=== PATIENT | female | born 1955 | race Caucasian/White ===

== ENCOUNTER → 2019-01-03 | Emergency (ER) | payer MEDICAID | LOC: ER 18:40 | DX: R73.9 Hyperglycemia, unspecified (principal); Z53.21 Procedure and treatment not carried out due to patient leaving prior to being seen by health care provider | CPT/HCPCS: 82962 ==

== ENCOUNTER 2022-08-15 22:52 | Emergency (ER) | payer OTHER, MEDICAID ==
[~2022-08-15] VITALS: Ht 162.6 cm; Wt 97.8 kg
[2022-08-16 00:05] LABS: Basophils # (auto) 0.1 10 ^3/uL (0-0.2); Basophils % (auto) 1.2 % (0.0-2.0); Eosinophils # (auto) 0.2 10 ^3/uL (0-0.8); Eosinophils % (auto) 2.2 % (0.0-7.0); Hematocrit 29.6 % (36.0-46.0); Hemoglobin 9.9 g/dL (12.2-16.2); Lymphocytes # (auto) 3.1 10 ^3/uL (0.4-5.4); Lymphocytes % (auto) 43.3 % (10.0-50.0); Mean Corpuscular Hemoglobin 31.4 pg (28.0-32.0); Mean Corpuscular Hgb Conc. 33.4 g/dL (32.0-36.0); Monocytes # (auto) 0.5 10 ^3/uL (0-1.3); Monocytes % (auto) 7.1 % (0.0-12.0); Neutrophils # (auto) 3.3 10 ^3/uL (1.6-8.6); Neutrophils % (auto) 46.2 % (37.0-80.0); Red Blood Cells 3.15 10^6/uL (4.0-5.20); Red Cell Distribution Width 14.8 % (11.8-14.3); White Blood Cell 7.1 10^3/uL (4.4-10.8)
[2022-08-16 00:18] LABS: Albumin 3.3 g/dL (3.4-5.0); Calcium 8.8 mg/dL (8.5-10.1); Magnesium 2.3 mg/dL (1.6-2.6); Potassium 3.1 mmol/L (3.5-5.1)
[2022-08-16 00:20] LABS: Urine Bacteria FEW /hpf (None Seen); Urine Blood Negative /uL (Negative); Urine Specific Gravity 1.017 (1.001-1.035); Urine WBC 152 /hpf (0 - 5); Urine WBC Clumps PRESENT /hpf (None Seen)
[2022-08-16 00:21] LABS: BUN/Creatinine Ratio 13.8 (10.0-20.0); Bilirubin, Total 0.4 mg/dL (0.2-1.0); Total Protein 6.8 g/dL (6.4-8.2)
[2022-08-16] MEDS ORDERED: POTASSIUM CHL 20 Meq TABLET PO ONE (02:45)
[2022-08-16 03:11] LABS: Alcohol, Urine < 3.0 mg/dL (0-10); Amphetamine Screen, Urine NEGATIVE (NEGATIVE); Barbiturate Scree,Urine NEGATIVE (NEGATIVE); Benzodiazephine Screen, Urine NEGATIVE (NEGATIVE); Cannabinoid Screen, Urine NEGATIVE (NEGATIVE); Cocaine Screen, Urine NEGATIVE (NEGATIVE); Opiate Scree,Urine NEGATIVE (NEGATIVE); Phencyclidine Screen, Urine NEGATIVE (NEGATIVE)
[2022-08-16] MEDS ORDERED: FUROSEMIDE 40 MG/4 ML VIAL IV ONE (03:15)
[2022-08-16] MEDS ORDERED: IOHEXOL 350 MG/ML 100ML IJ ONE (03:33)
[2022-08-16] MEDS ORDERED: PIPERACILLIN-TAZOB 3.375GM 100 ML IV ONE (04:15)
[2022-08-16] MEDS ORDERED: POTA-180 PO (05:00)
[2022-08-16] MEDS ORDERED: NITR-87 PO (10:43)
[2022-08-16 11:28] VITALS: BP 153/64
== END 2022-08-16 11:35 | disposition home or self-care (01) ==
LOC: ER 22:52
DX: I11.0 Hypertensive heart disease with heart failure (principal); I50.9 Heart failure, unspecified; R60.0 Localized edema; E11.9 Type 2 diabetes mellitus without complications; Z88.2 Allergy status to sulfonamides; Z79.899 Other long term (current) drug therapy
CPT/HCPCS: 36415; 71046; 71275; 80053; 80307; 81001; 82962; 83735; 83880; 84484; 85025; 85379; 93005; 93970; 96365; 96366; 96375; 99285; J1940; J2543; Q9967

== ENCOUNTER 2024-07-28 14:34 | Inpatient (IN) | payer MEDICARE, MEDICAID ==
[2024-07-28] VITALS (18 sets, daily range): BP systolic 124–160; BP diastolic 51–94; PULSE 57–71; RESP 11–25; O2SAT 90–96
[~2024-07-28] VITALS: Ht 165.1 cm; Wt 87.5 kg
[~2024-07-28 14:34] MED LIST: NITR-87 PO; POTA-180 PO
--- NOTE | 2024-07-28 14:39 | ED.PDOC ---
History of Present Illness HPI Comments 69-year-old female brought by paramedics from home because of burning on urination generalized weakness. She recently had urinary tract infection for which she was treated with Cipro for a week. When paramedics arrived her heart rate was in the 30s to 40s for which she was given atropine and push dose of ep i. Her blood pressure on arrival in the ER was systolic 68. Patient continues to have generalized weakness. History of coronary artery disease with stent placement many years ago along with hypertension diabetes. Denies any other symptoms. Time Seen by MD: 14:35 Reviewed Notes: Nurses Notes, Medications, Allergies Allergies: Coded Allergies: Sulfamethoxazole w/Trimethoprim (Verified Allergy, Unknown, 08/15/22) Home Meds Active Scripts Nitrofurantoin Monohydrate Mac (Macrobid) 100 Mg Cap, 100 MG PO BID for 5 Days, #10 CAP Prov:JOEL LEONARDO MD 08/16/22 Potassium Chloride (Potassium Chloride ER) 20 Meq Tab, 20 MEQ PO DAILY for 30 Days, #30 TAB Prov:YUMIKO THAKKAR DO 08/16/22 Information Source: Patient, Emergency Med Personnel Mode of Arrival: EMS Severity: Moderate Timing: Days Duration: Since onset Past Medical History PAST MEDICAL HISTORY: CHF, DM, HTN, IA Surgical History: Denies all surgeries PRODUCT EXAMINER History: Denies all PRODUCT EXAMINER Hx Family History Family History: Reviewed,noncontributory to illness Social History Smoker: Non-Smoker Alcohol: Denies ETOH Use Drugs: Denies Drug Use Lives In: Home Constitutional: reports: weakness; denies: chills, diaphoresis, fatigue, fever, malaise, sweats, others EENTM: denies: blurred vision, double vision, ear bleeding, ear discharge, ear drainage, ear pain, ear ringing, eye pain, eye redness, hearing loss, mouth pain, mouth swelling, nasal discharge, nose bleeding, nose congestion, nose pain, photophobia, tearing, throat pain, throat swelling, voice changes, others Respiratory: denies: cough, hemoptysis, orthopnea, SOB at rest, shortness of breath, SOB with excertion, stridor, wheezing, others Cardiovascular: denies: chest pain, dizzy spells, diaphoresis, Dyspnea on exertion, edema, irregular heart beat, left arm pain, lightheadedness, palpitations, PND, syncope, others Gastrointestinal: denies: abdomen distended, abdominal pain, blood streaked bowels, constipated, diarrhea, dysphagia, difficulty swallowing, hematemesis, melena, nausea, poor appetite, poor fluid intake, rectal bleeding, rectal pain, vomiting, others Genitourinary: reports: dysuria; denies: abnormal vagina bleeding, burning, dyspareunia, flank pain, frequency, hematuria, incontinence, pain, , vagina discharge, urgency, others Neurological: denies: dizziness, fainting, headache, left sided numbness, left sided weakness, numbness, paresthesia, pre-existing deficit, right sided nu mbness, right sided weakness, seizure, speech problems, tingling, tremors, weakness, others Musculoskeletal: denies: back pain, gout, joint pain, joint swelling, muscle pain, muscle stiffness, neck pain, others Integumetry: denies: bruises, change in color, change in hair/nails, dryness, laceration, lesions, lumps, rash, wounds, others Allergic/Immunocompromised: denies: Difficulty Healing, Frequent Infections, Hives, Itching, others Hematologic/Lymphatic: denies: anemia, blood clots, easy bleeding, easy bruising, swollen glands, others Endocrine: denies: excessive hunger, excessive sweating, excessive thirst, excessive urination, flushing, intolerance to cold, intolerance to heat, unexplained weight gain, unexplained weight loss, others Psychiatric: denies: anxiety, bipolar disorder, depression, hopeless, panic disorder, schizophrenia, sleepless, suicidal, others Physical Exam General Appearance: Moderate Distress HEENT: Normal ENT Inspection, Pharynx Normal, TMs Normal Neck: Full Range of Motion, Non-Tender, Normal, Normal Inspection Respiratory: Chest Non-Tender, Lungs Clear, No Accessory Muscle Use, No Respiratory Distress, Normal Breath Sounds Cardiovascular: No Edema, No JVD, No Murmur, No Gallop, Normal Peripheral Pulses, Regular Rate/Rhythm Breast Exam: Deferred Gastrointestinal: No Organomegaly, Non Tender, No Pulsatile Mass, Normal Bowel Sounds, Soft Genitalia: Deferred Pelvic: Deferred Rectal: Deferred Extremities: No calf tenderness, Normal capillary refill, Normal inspection, Normal range of motion, Non-tender, No pedal edema Musculoskeletal : Apperance: Normal Neurologic: Alert, bricklayer sewer II-XII nml as Tested, No Motor Deficits, Normal Affect, Normal Mood, No Sensory Deficits Cerebellar Function: NOT DONE Reflexes: NOT DONE Skin: Dry, Normal Color, Warm Peripheral Pulses: 3+ Radial (R), 3+ Radial (L) Lymphatic: No Adenopathy Was a procedure done? Was a procedure done?: Yes Sedation Sedation?: No Central Line Recorder of insertion practice: Package Collector Occupation of utility repairer: Attending Physician Indication: Hypotension, CVP monitoring Room prepared for procedure: Yes Package Collector performed hand hygien: Yes Maximal sterile barrier precau: Mask/Eye shield, Sterile gown Skin Preparation: Chlorhexidine gluconate Skin preparation completely dr: Yes Insertion site: Right, Internal jugular Central line catheter type: Dnt-[id number]-scb dialysis Number of lumens: 3 Antiseptic ointment applied to: Yes Post Assessment: Chest X-Ray Differential Dx Considerations may include: Anemia Electrolyte imbalance X-Ray, Labs, Meds, VS Vital Signs Date Time Temp Pulse Resp B/P (MAP) Pulse Ox O2 Delivery O2 Flow Rate FiO2 07/28/24 16:59 79/33 07/28/24 16:45 81 15 99/45 (63) 99 07/28/24 16:30 86 15 79/33 (48) 99 07/28/24 16:15 86 15 87/35 (52) 99 07/28/24 16:00 86 15 101/33 (55) 99 07/28/24 16:00 101/33 07/28/24 15:50 82/41 07/28/24 15:45 83 15 82/41 (55) 99 07/28/24 15:40 80/49 07/28/24 15:30 74 15 80/49 (59) 99 07/28/24 15:30 71/36 07/28/24 15:15 71 15 71/36 (48) 99 07/28/24 15:00 97.5 71 15 90/42 (58) 99 97.5 07/28/24 14:43 72 07/28/24 14:41 74 24 68/52 (57) 99 07/28/24 14:41 74 24 68/52 (57) 99 Lab Test 07/28/24 15:57 07/28/24 14:48 Range/Units Troponin I High Sensitivity < 3 L < 3 L </=34 ng/L White Blood Count 8.6 4.4-10.8 10^3/uL Red Blood Count 4.32 4.0-5.20 10^6/uL Hemoglobin 12.9 12.2-16.2 g/dL Hematocrit 39.4 36.0-46.0 % Mean Corpuscular Volume 91.3 80.0-100.0 fL Mean Corpuscular Hemoglobin 29.9 28.0-32.0 pg Mean Corpuscular Hemoglobin Concent 32.8 32.0-36.0 g/dL Red Cell Distribution Width 14.3 11.8-14.3 % Platelet Count 275 140-450 10^3/uL Mean Platelet Volume 9.2 6.9-10.8 fL Neutrophils (%) (Auto) 61.4 37.0-80.0 % Lymphocytes (%) (Auto) 30.6 10.0-50.0 % Monocytes (%) (Auto) 6.1 0.0-12.0 % Eosinophils (%) (Auto) 1.2 0.0-7.0 % Basophils (%) (Auto) 0.7 0.0-2.0 % Neutrophils # (Auto) 5.3 1.6-8.6 10 ^3/uL Lymphocytes # (Auto) 2.6 0.4-5.4 10 ^3/uL Monocytes # (Auto) 0.5 0-1.3 10 ^3/uL Eosinophils # (Auto) 0.1 0-0.8 10 ^3/uL Basophils # (Auto) 0.1 0-0.2 10 ^3/uL Nucleated Red Blood Cells 0.2 % Sodium Level 141 136-145 mmol/L Potassium Level 4.6 3.5-5.1 mmol/L Chloride Level 112 H 98-107 mmol/L Carbon Dioxide Level 20 20-31 mmol/L Anion Gap 9 5-15 Blood Urea Nitrogen 26 H 9-23 mg/dL Creatinine 1.59 H 0.550-1.02 mg/dL Glomerular Filtration Rate Calc 35 >90 mL/min BUN/Creatinine Ratio 16.4 10.0-20.0 Serum Glucose 300 H 74-106 mg/dL Calcium Level 9.9 8.7-10.4 mg/dL Current Medications Medications (Trade) Dose Ordered Sig/Annette Route Start Time Stop Time Status Last Admin Sodium Chloride 1,000 ml @ 1,000 mls/hr Q1H ONCE IV 07/28/24 14:45 07/28/24 15:44 DC 07/28/24 15:04 Sodium Chloride 1,000 ml @ 150 mls/hr Q6H40M ONCE IV 07/28/24 14:45 07/28/24 21:24 07/28/24 15:04 Dopamine HCl/ Dextrose 250 ml @ 13.125 mls/ hr Q19H3M ONCE IV 07/28/24 14:45 07/29/24 09:47 07/28/24 15:30 Norepinephrine Bitartrate 250 ml @ 3.75 mls/hr Q24H IV 07/28/24 16:45 07/28/24 16:59 Patient alert. Generalized weakness. Bradycardia in the field. Was given atropine. Blood pressure on the low side. Establish intravenous access. Was given fluids. Symptomatic bradycardia. Was given dopamine. Reviewed her history. Explained to the patient her condition. Continue cardiac monitoring. Blood pressure continues to be low. Started Levophed. Time of 1ST Reevaluation: 14:37 Reevaluation 1ST: Unchanged Patient Education/Counseling: Diagnosis, Treatment, Prognosis Family Education/Counseling: No Family Present Departure 1 Departure Time of Disposition: 14:38 Impression: Primary Impression: Symptomatic bradycardia Additional Impressions: Hyperglycemia Hypotension Qualified Codes: I95.9 - Hypotension, unspecified Disposition: ADMITTED INPATIENT Admit to: Med Surg Condition: Guarded Critical Care Note Critical Care Time?: Yes (90 min-critical care time only) Critical care comment: Hypotension continue to monitor her Stability Stability form required: No Heart Score Heart Score: Heart Score Response (Comments) Value History Slightly Suspicious 0 EKG Normal 0 Age >65 2 Risk Factors >3 or Hx ASHD 2 Troponin Normal limit 0 Total 4 JOEL LEONARDO MD July 28, 2024 14:39
[2024-07-28 15:04] LABS: Basophils # (auto) 0.1 10 ^3/uL (0-0.2); Basophils % (auto) 0.7 % (0.0-2.0); Eosinophils # (auto) 0.1 10 ^3/uL (0-0.8); Eosinophils % (auto) 1.2 % (0.0-7.0); Hematocrit 39.4 % (36.0-46.0); Hemoglobin 12.9 g/dL (12.2-16.2); Lymphocytes # (auto) 2.6 10 ^3/uL (0.4-5.4); Lymphocytes % (auto) 30.6 % (10.0-50.0); Mean Corpuscular Hemoglobin 29.9 pg (28.0-32.0); Mean Corpuscular Hgb Conc. 32.8 g/dL (32.0-36.0); Mean Corpuscular Volume 91.3 fL (80.0-100.0); Monocytes # (auto) 0.5 10 ^3/uL (0-1.3); Monocytes % (auto) 6.1 % (0.0-12.0); Neutrophils # (auto) 5.3 10 ^3/uL (1.6-8.6); Neutrophils % (auto) 61.4 % (37.0-80.0); Nucleated Red Blood Cells % 0.2 %; Platelet Count (auto) 275 10^3/uL (140-450); Red Blood Cells 4.32 10^6/uL (4.0-5.20); Red Cell Distribution Width 14.3 % (11.8-14.3); White Blood Cell 8.6 10^3/uL (4.4-10.8)
[2024-07-28] MEDS: SODIUM CHLORIDE 0.9% 1,000 ML IV ONE ×3 (15:04→19:00)
[2024-07-28 15:08] LABS: Potassium 4.6 mmol/L (3.5-5.1); Sodium 141 mmol/L (136-145)
[2024-07-28 15:09] LABS: Anion Gap 9 (5-15); Calcium 9.9 mg/dL (8.7-10.4)
[2024-07-28 15:14] LABS: BUN/Creatinine Ratio 16.4 (10.0-20.0)
--- NOTE | 2024-07-28 15:17 | DVH ---
CHEST RADIOGRAPH Indication: Sob Technique: Single frontal view of the chest was obtained Comparison: None FINDINGS: Lines and Tubes: None Lungs: No focal consolidation. Pleura: No effusion. No pneumothorax. Cardiomediastinal contours: Unremarkable Bones: No acute osseous abnormality. IMPRESSION: 1. No acute cardiopulmonary disease.
[2024-07-28 15:30] LABS: Blood Urea Nitrogen 26 mg/dL (9-23); Carbon Dioxide 20 mmol/L (20-31); Chloride 112 mmol/L (98-107); Glucose 300 mg/dL (74-106)
[2024-07-28] MEDS: DOPamine 1600MCG/ML D5W 250 ML IV ONE ×2 (15:30→22:16)
--- NOTE | 2024-07-28 16:43 | DVHHP2 ---
Admitting Diagnosis: Generalized weakness History of Present Illness 69-year-old female brought by paramedics from home because of burning on urination generalized weakness. She recently had urinary tract infection for which she was treated with Cipro for a week. When paramedics arrived her heart rate was in the 30s to 40s for which she was given atropine and push dose of epi. Her blood pressure on arrival in the ER was systolic 68. Patient continues to have generalized weakness. History of coronary artery disease with stent placement many years ago along with hypertension diabetes. Denies any other symptoms. PAST MEDICAL HISTORY: CHF, DM, HTN, IA Surgical History: Denies all surgeries VP CLINICAL RESEARCH History: Denies all VP CLINICAL RESEARCH Hx Family History Family History: Reviewed,noncontributory to illness Social History Smoker: Non-Smoker Alcohol: Denies ETOH Use Drugs: Denies Drug Use Lives In: Home Allergies: Coded Allergies: Sulfamethoxazole w/Trimethoprim (Verified Allergy, Unknown, 08/15/22) Home Meds Active Scripts Nitrofurantoin Monohydrate Mac (Macrobid) 100 Mg Cap, 100 MG PO BID for 5 Days, #10 CAP Prov:JOEL LEONARDO MD 08/16/22 Potassium Chloride (Potassium Chloride ER) 20 Meq Tab, 20 MEQ PO DAILY for 30 Days, #30 TAB Prov:YUMIKO THAKKAR DO 08/16/22 Current Medications Current Medications Medications (Trade) Dose Ordered Sig/Annette Route PRN Reason Start Time Stop Time Status Last Admin Norepinephrine Bitartrate 250 ml @ 3.75 mls/hr Q24H IV 07/28/24 16:45 07/28/24 16:59 Vital Signs Vital Signs Date Time Temp Pulse Resp B/P (MAP) Pulse Ox O2 Delivery O2 Flow Rate FiO2 07/28/24 16:59 79/33 07/28/24 16:45 81 15 99 07/28/24 15:00 97.5 97.5 Physical Exam Generally-71 years old woman overweight, chair. No apparent distress HEENT-atraumatic, normocephalic Heart-regular rate and rhythm Lungs clear to auscultate bilaterally Soft nontender nondistended Musculoskeletal-no edema cyanosis Neuro-awake, alert, follow commands, no focal deficits Results Labs Test 07/28/24 18:08 07/28/24 14:48 Range/Units Lactic Acid Level 0.9 0.4-2.0 mmol/L Troponin I High Sensitivity < 3 L </=34 ng/L White Blood Count 8.6 4.4-10.8 10^3/uL Red Blood Count 4.32 4.0-5.20 10^6/uL Hemoglobin 12.9 12.2-16.2 g/dL Hematocrit 39.4 36.0-46.0 % Mean Corpuscular Volume 91.3 80.0-100.0 fL Mean Corpuscular Hemoglobin 29.9 28.0-32.0 pg Mean Corpuscular Hemoglobin Concent 32.8 32.0-36.0 g/dL Red Cell Distribution Width 14.3 11.8-14.3 % Platelet Count 275 140-450 10^3/uL Mean Platelet Volume 9.2 6.9-10.8 fL Neutrophils (%) (Auto) 61.4 37.0-80.0 % Lymphocytes (%) (Auto) 30.6 10.0-50.0 % Monocytes (%) (Auto) 6.1 0.0-12.0 % Eosinophils (%) (Auto) 1.2 0.0-7.0 % Basophils (%) (Auto) 0.7 0.0-2.0 % Neutrophils # (Auto) 5.3 1.6-8.6 10 ^3/uL Lymphocytes # (Auto) 2.6 0.4-5.4 10 ^3/uL Monocytes # (Auto) 0.5 0-1.3 10 ^3/uL Eosinophils # (Auto) 0.1 0-0.8 10 ^3/uL Basophils # (Auto) 0.1 0-0.2 10 ^3/uL Nucleated Red Blood Cells 0.2 % Sodium Level 141 136-145 mmol/L Potassium Level 4.6 3.5-5.1 mmol/L Chloride Level 112 H 98-107 mmol/L Carbon Dioxide Level 20 20-31 mmol/L Anion Gap 9 5-15 Blood Urea Nitrogen 26 H 9-23 mg/dL Creatinine 1.59 H 0.550-1.02 mg/dL Glomerular Filtration Rate Calc 35 >90 mL/min BUN/Creatinine Ratio 16.4 10.0-20.0 Serum Glucose 300 H 74-106 mg/dL Calcium Level 9.9 8.7-10.4 mg/dL Primary Diagnosis Symptomatic bradycardia Shock suspect cardiogenic possible septic Possible beta luis overdose Plan Troponin negative, blood pressure continues to drop, heart rate bradycardia Unclear home meds Started on pressors in ED. Map goal greater than 65 for cerebral perfusion Check echo of the heart assess for global hypokinesis IV fluids for possible right heart failure Cardiology consult for shock Daughter brought medication from patient's cabinet found propranolol 80 mg. Glucagon 5 mg IV push ordered Monitor heart rate Full code Cardiac diet Lovenox for DVT prophylaxis PPI for GI prophylaxis Plan discussed with: Patient Date of Service: July 28, 2024 Billing Provider: KRISTEN MONTALVO MD Common Visit Codes: 83114-[id number] CARE 30-74 MIN KRISTEN MONTALVO MD July 28, 2024 16:43
[2024-07-28] MEDS: NOREPINEPHRINE 8 MG/250ML KIT 250 ML IV ONE (16:51)
[2024-07-28] MEDS: NOREPINEPHRINE 8 MG/250ML KIT 250 ML IV SCH (16:59)
--- NOTE | 2024-07-28 17:56 | DVH ---
CHEST RADIOGRAPH Indication: CVC insertion Technique: Single frontal view of the chest was obtained Comparison: XY CHEST PORTABLE on DOS: 07/28/24 FINDINGS: Lines and Tubes: Questionable right IJ approach central venous catheter terminating over the distal S VC. Tubular structure overlying the neck which may represent oxygen tubing. Lungs: No focal consolidation. Bronchovascular crowding due to low lung volume with diffuse interstit ial prominence. Pleura: No effusion. No pneumothorax. Cardiomediastinal contours: Unremarkable Bones: No acute osseous abnormality. IMPRESSION: Bronchovascular crowding due to low lung volumes with possible underlying pulmonary vascular congesti on.
[2024-07-28] MEDS ORDERED: HYDROCORTISONE SOD SUCC 100 MG/2ML INJ VIAL IV SCH (19:00)
--- NOTE | 2024-07-28 19:57 | DVH ---
INDICATION: yasmany on ckd TECHNIQUE: Multiple real-time sonographic images of the kidneys and bladder were obtained. COMPARISON: None FINDINGS / IMPRESSION: Both kidneys are slightly small in caliber with the right kidney measuring 8.6 cm in length and the l eft 8 cm. Both kidneys are within normal limits in echogenicity but demonstrate evidence of mild griselad ical thinning / scarring. No hydronephrosis. Urinary bladder demonstrates a prevoid volume of 347 mL with no abnormality noted.
[2024-07-28] MEDS: GLUCAGON EMERG KIT 1mg/1ml IV ONE (21:41)
[2024-07-28] MEDS: HYDROCORTISONE SOD SUCC 100 MG/2ML INJ VIAL IV SCH (21:45)
[2024-07-28] MEDS: ONDANSETRON HCL 4 MG/2 ML VIAL IV PRN (21:52)
[2024-07-28] MEDS: DOPamine 1600MCG/ML D5W 250 ML IV SCH (22:16)
[2024-07-28] MEDS: SODIUM CHLOR 0.9% PF (SALINE LOCK) 10ML VIAL/SYR IV SCH (22:16)
[2024-07-28] MEDS: ACETAMINOPHEN 325 MG TAB PO PRN (23:15)
[2024-07-29] VITALS (98 sets, daily range): BP systolic 95–157; BP diastolic 34–106; PULSE 49–75; RESP 11–27; TEMP 97.8–99.4; O2SAT 89–99
[2024-07-29] MEDS ORDERED: DEXTROSE (50%) 50ML SYRG IV PRN
[2024-07-29] MEDS: HYDROcodone-ACET 5/325MG TAB PO PRN (00:22)
[2024-07-29] MEDS: InsuLIN REG 1unit/0.01ml Soln (100units/ml) SC ONE (00:28)
[2024-07-29 05:39] LABS: Basophils # (auto) 0.1 10 ^3/uL (0-0.2); Basophils % (auto) 0.5 % (0.0-2.0); Eosinophils # (auto) 0 10 ^3/uL (0-0.8); Eosinophils % (auto) 0.1 % (0.0-7.0); Hematocrit 40.5 % (36.0-46.0); Hemoglobin 13.5 g/dL (12.2-16.2); Lymphocytes # (auto) 3.6 10 ^3/uL (0.4-5.4); Lymphocytes % (auto) 25.5 % (10.0-50.0); Mean Corpuscular Hemoglobin 29.4 pg (28.0-32.0); Mean Corpuscular Hgb Conc. 33.4 g/dL (32.0-36.0); Mean Corpuscular Volume 88.1 fL (80.0-100.0); Monocytes # (auto) 1.3 10 ^3/uL (0-1.3); Monocytes % (auto) 8.8 % (0.0-12.0); Neutrophils # (auto) 9.3 10 ^3/uL (1.6-8.6); Neutrophils % (auto) 65.1 % (37.0-80.0); Platelet Count (auto) 372 10^3/uL (140-450); Red Cell Distribution Width 13.3 % (11.8-14.3); White Blood Cell 14.3 10^3/uL (4.4-10.8)
[2024-07-29 06:57] LABS: Sodium 142 mmol/L (136-145)
[2024-07-29 06:58] LABS: Anion Gap 11 (5-15); Carbon Dioxide 21 mmol/L (20-31)
[2024-07-29] MEDS: InsuLIN REG 1unit/0.01ml Soln (100units/ml) SC SCH ×2 (07:00→22:13)
[2024-07-29 07:04] LABS: BUN/Creatinine Ratio 14.8 (10.0-20.0); Blood Urea Nitrogen 23 mg/dL (9-23)
[2024-07-29 07:11] LABS: Chloride 110 mmol/L (98-107); Glucose 114 mg/dL (74-106); Potassium 3.3 mmol/L (3.5-5.1)
[2024-07-29] MEDS: ACCU-CHEK COMFORT CURVE STRIP VI SCH (07:11)
[2024-07-29] MEDS: POTASSIUM CHL 20 Meq TABLET PO ONE (09:01)
[2024-07-29 09:06] LABS: Magnesium 1.8 mg/dL (1.6-2.6)
[2024-07-29] MEDS: MAGNESIUM SULFATE 1GM/100ML 100 ML IV ONE (10:22)
[2024-07-29] MEDS: KETOROLAC TROMETH 30 MG/ML 1ML VIAL IV ONE (10:24)
[2024-07-29] MEDS: ENOXAPARIN SOD 40 MG/0.4 ML SYRINGE SC SCH (10:25)
--- NOTE | 2024-07-29 11:38 | DVHINCON2 ---
Date Seen: July 29, 2024 Referring Physician MD Chad Reason for Consultation Symptomatic bradycardia History of Present Illness This is a pleasant 69-year-old female who presented to the emergency room via EMS with a chief complaint of generalized weakness. The patient reports she experienced generalized weakness associated with DICKERSON, epigastric pain and some diaphoresis prompting her to call 911. Upon EMS arrival she was found to be bradycardic with a heart rate in the 30s-40s bpm for which she was administered atropine 1 mg and epinephrine (unknown amount) and found with a blood sugar level of 288 mg/dL. Upon arrival to the emergency room she underwent a 12 lead electrocardiogram revealing a sinus rhythm with an associated first-degree atrioventricular block at 72 bpm. He is currently on a dopamine drip for chronotropic support. She takes propranolol 10 mg b.i.d. for migraine HAs. She was medicated with glucagon 5mg IV in the ED. Serial troponin levels are negative. Follows-up in outpatient setting with Dr. Camara, curing bin operator. Undergoing a nonischemic stress test approximately a year ago. Upon assessment, the patient complaint of epigastric pain which resembles to symptoms from a previous SD. Significant medical history includes coronary artery disease status post one single stent to the RCA in [place] on 1997 (on ASA), [id number]-[id number] diabetes mellitus, hypertension, dyslipidemia, migraine headaches on propranolol, anxiety, and morbid obesity. Past Medical History Past medical history reviewed. No other significant than mentioned above. Past Surgical History PCI to the RCA x1 FELY, 1997 Back surgery Family History Family history reviewed. Social History Denies the use of illicit drugs, alcohol, or tobacco use. Allergies: Coded Allergies: Sulfamethoxazole w/Trimethoprim (Verified Allergy, Unknown, 08/15/22) Home Meds Active Scripts Nitrofurantoin Monohydrate Mac (Macrobid) 100 Mg Cap, 100 MG PO BID for 5 Days, #10 CAP Prov:JOEL LEONARDO MD 08/16/22 Potassium Chloride (Potassium Chloride ER) 20 Meq Tab, 20 MEQ PO DAILY for 30 Days, #30 TAB Prov:YUMIKO THAKKAR DO 08/16/22 Home Meds Home medications reviewed. Current Medications Current Medications Medications (Trade) Dose Ordered Sig/Annette Route PRN Reason Start Time Stop Time Status Last Admin Norepinephrine Bitartrate 250 ml @ 3.75 mls/hr Q24H IV 07/28/24 16:45 07/28/24 16:59 Sodium Chloride (Saline Lock Ns) 10 ml Q8HR IV 07/28/24 22:00 07/29/24 05:32 Docusate Sodium (Colace Capsule) 100 mg BIDPRN PRN PO FOR CONSTIPATION 07/28/24 19:00 Acetaminophen (Tylenol Tablet) 650 mg Q6HP PRN PO PAIN SCALE 1-3 OR TEMP>100.4 07/28/24 19:00 07/28/24 23:15 Ondansetron HCl (Zofran) 4 mg Q4HP PRN IV NAUSEA / VOMITING 07/28/24 19:00 07/29/24 09:01 Enoxaparin Sodium (Lovenox) 40 mg DAILY SC 07/29/24 10:00 07/29/24 10:25 Hydrocortisone Sodium Succinate (Solu-CORTEF INJECTION) 50 mg Q6H IV 07/28/24 19:00 07/28/24 21:38 DC Hydrocortisone Sodium Succinate (Solu-CORTEF INJECTION) 50 mg Q6H IV 07/28/24 21:45 Dopamine HCl/ Dextrose 250 ml @ 18.75 mls/ hr [id number] IV 07/28/24 22:15 07/29/24 10:08 Diagnostic Test (Pha) (Accu-Chek Comfort Curve T) 1 strip ACHS 07/29/24 07:00 07/29/24 07:11 Insulin Human Regular (InsuLIN R) HS SC 07/29/24 22:00 Insulin Human Regular (InsuLIN R) AC SC 07/29/24 07:00 Dextrose 50 ml UD PRN IV Blood Sugar LESS THAN 60 07/29/24 00:00 Acetaminophen/ Hydrocodone Bitart ([place] 5/325MG Tab) 1 tab Q6HPRN PRN PO MODERATE PAIN (4-6 PAIN SCALE) 07/29/24 00:15 07/29/24 00:22 Review of Systems Constitutional: Generalized weakness, diaphoresis Ears, Nose, & Throat: No symptom reported Eyes: No symptom reported Neurological: DICKERSON Pulmonary/Respiratory: No symptom reported Cardiovascular: No symptom reported Gastrointestinal: Epigastric pain Genitourinary: No symptom reported Musculoskeletal: No symptom reported Skin: No symptom reported Psychiatric: No symptom reported Endocrine: No symptom reported Hemotologic/Lymphatic: No symptom reported Vital Signs Vital Signs Date Time Temp Pulse Resp B/P (MAP) Pulse Ox O2 Delivery O2 Flow Rate FiO2 07/29/24 10:45 63 20 130/61 (84) 93 07/29/24 08:00 99.4 99.4 07/29/24 08:00 Nasal Cannula* 2 28 Physical Exam General Appearance: Cooperative. Well developed. Morbidly obese. In no acute distress Head Exam: Normal inspection Neck Exam: Normal inspection. Non-tender. Normal alignment Pulmonary/Respiratory: Chest non-tender. Clear bilateral breath sounds Cardiovascular/Chest: Regular rate and rhythm. S1, S2. NSR. No murmurs. No JVD. Peripheral Pulses: 2+ Radial (R). 2+ Radial (L). 2+ Pedal (R). 2+ Pedal (L) Abdominal Exam: Normal bowel sounds. Soft. Nontender. No hepatospenomegaly. No masses Ankle Exam: Negative ankle edema Lower extremities: Negative lower extremity edema Neuro/Mental Status: A&O x4. Coherent Thoughts/Psych: Normal thought pattern. Appropriate mood and affect. Good judgement and insight Appearance: In no acute distress Skin Exam: Normal inspection. Normal color. Warm. Dry Labs/Diagnostic Data Labs Test 07/29/24 06:43 07/29/24 05:07 07/28/24 18:08 07/28/24 14:48 Range/Units POC Glucose 88 70-106 mg/dl White Blood Count 14.3 #H 4.4-10.8 10^3/uL Red Blood Count 4.60 4.0-5.20 10^6/uL Hemoglobin 13.5 12.2-16.2 g/dL Hematocrit 40.5 36.0-46.0 % Mean Corpuscular Volume 88.1 80.0-100.0 fL Mean Corpuscular Hemoglobin 29.4 28.0-32.0 pg Mean Corpuscular Hemoglobin Concent 33.4 32.0-36.0 g/dL Red Cell Distribution Width 13.3 11.8-14.3 % Platelet Count 372 140-450 10^3/uL Mean Platelet Volume 8.5 6.9-10.8 fL Neutrophils (%) (Auto) 65.1 37.0-80.0 % Lymphocytes (%) (Auto) 25.5 10.0-50.0 % Monocytes (%) (Auto) 8.8 0.0-12.0 % Eosinophils (%) (Auto) 0.1 0.0-7.0 % Basophils (%) (Auto) 0.5 0.0-2.0 % Neutrophils # (Auto) 9.3 H 1.6-8.6 10 ^3/uL Lymphocytes # (Auto) 3.6 0.4-5.4 10 ^3/uL Monocytes # (Auto) 1.3 0-1.3 10 ^3/uL Eosinophils # (Auto) 0 0-0.8 10 ^3/uL Basophils # (Auto) 0.1 0-0.2 10 ^3/uL Nucleated Red Blood Cells 0.0 % Sodium Level 142 136-145 mmol/L Potassium Level 3.3 L 3.5-5.1 mmol/L Chloride Level 110 H 98-107 mmol/L Carbon Dioxide Level 21 20-31 mmol/L Anion Gap 11 5-15 Blood Urea Nitrogen 23 9-23 mg/dL Creatinine 1.55 H 0.550-1.02 mg/dL Glomerular Filtration Rate Calc 36 >90 mL/min BUN/Creatinine Ratio 14.8 10.0-20.0 Serum Glucose 114 H 74-106 mg/dL Hemoglobin A1c 10.1 H <5.7 % A1C Calcium Level 10.0 8.7-10.4 mg/dL Magnesium Level 1.8 1.6-2.6 mg/dL B-Type Natriuretic Peptide 569.32 0-100 pg/mL Triglycerides Level 91 < 150 mg/dL Cholesterol Level 113 < 200 mg/dL LDL Cholesterol 38 < 100 mg/dL HDL Cholesterol 57 40-59 mg/dL Thyroid Stimulating Hormone (TSH) 0.68 0.55-4.78 uIU/mL Lactic Acid Level 0.9 0.4-2.0 mmol/L Troponin I High Sensitivity < 3 L </=34 ng/L C-Reactive Protein High Sensitivity 0.07 <1.0 mg/dL Assessment ?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 Batista) Bradycardia likely secondary to propranolol use for which the patient was medicated with glucagon IV and is currently on a dopamine drip for chronotropic support. Attempt to titrate off dopamine for a target HR > 50 bpm. Avoid AV jana blocking agents. Continue with a transthoracic echocardiogram to evaluate cardiac function. She will be scheduled for a nuclear cardiolite stress test once clinically stable and off vasopressor. Notify Cardiology in the setting of a heart rate <30 bpm or high-degree AV blocks on monitor. Single antiplatelet therapy and lipid lowering agent. Rest of plan per clinical course. Thank you for allowing us to participate in this patient's care. Please call if you have any questions or concerns. Critical care time: 45 min. This medical document was created using an electronic medical record system with voice recognition software and computerized dictation system. Although this document has been carefully r eviewed, there might still be some phonetic and typographical errors. Occasional wrong-word or ``sound-alike substitutions may have occurred due to the inherent limitations of voice recognition software. These areas are purely typographical due to imperfections of the software programs and do not reflect any compromise in the patient's medical care. Please read the chart carefully and recognize, using context, where these substitutions have occurred. Plan discussed with: Patient, Other NYHA Physical activity limitations: NA Date of Service: July 29, 2024 Billing Provider: BRITTANY OSBORN Cardiology Common Codes: 95880-[id number] CARE 30-74 MIN BRITTANY OSBORN July 29, 2024 11:38
--- NOTE | 2024-07-29 13:08 | DVHSR ---
APPROVED REPORT EXAM: Two-dimensional and M-mode echocardiogram with Doppler and color Doppler. Blood Pressure: 136/59 mmHg INDICATION Symptomatic bradycardia RISK FACTORS Height: 65, Weight: 220 DIMENSIONS LVDd4.3 (3.8-5.7cm)LA (2D)3.3 (1.9-4.0cm)Aortic Root3.2 (2.0-3.7cm) LVDs2.7 (2.5-4.0cm)LA (MM) (1.9-4.0cm)Aortic Cusp Exc1.7 (1.5-2.0cm) EF (%) 67.0 (55-70%)Rt. Atrium3.7 (1.9-4.0cm)Asc. Aorta cm IVSd0.9 (0.7-1.1cm)RV (D) (1.8-2.4cm) PWd1.2 (0.7-1.1cm) Mitral Valve MitralMitral Stenosis E wave0.91m/sMV Mean GR.mmHg A wave1.04m/sMV Peak GR.31mmHg E/A ratio0.92D MVAcm2 DECEL [id number] 1/2 [id number] IVRTmsDop MVA2.25cm2 Aortic Valve Aortic ValveAortic Stenosis V11.36m/Jose Guadalupe Mean GR.5mmHg V21.55m/Jose Guadalupe Peak GR.10mmHg LVOT Diameter1.6 (1.8-2.4cm)Doppler AVA1.76cm2 AI P 1/2 Uxrb717.08ms Pulmonic Valve V20.87m/s Tricuspid Valve TR Velocity2.71m/s [id number] Conclusion Left ventricle: Left ventricle was normal size with normal systolic function. The LVEF was around 65 %. There was no gross wall motion abnormality. Diastolic function was considered normal for age. Right ventricle was normal size with normal systolic function. Both atria were normal size. Aortic valve was trileaflet. There was trace aortic insufficiency. There was trace mitral regurgita tion. There was mild tricuspid regurgitation. There was trace pulmonary valve insufficiency. Right ventricular systolic pressure was assessed at 34 mm Hg (normal). There was no pericardial effu lele.
--- NOTE | 2024-07-29 13:13 | DVHPN2 ---
Subjective The patient is seen and examined at bedside. Still very drowsy and tired. Reviewed: Care Plan, H&P, Labs, Medications, Previous Orders, Radiology Changes from previous H/P or p: No Changes Objective Vitals Vital Signs Date Time Temp Pulse Resp B/P (MAP) Pulse Ox O2 Delivery O2 Flow Rate FiO2 07/29/24 12:00 59 07/29/24 10:45 20 130/61 (84) 93 07/29/24 08:00 99.4 99.4 07/29/24 08:00 Nasal Cannula* 2 28 Intake/Output Intake and Output 07/29/24 06:59 Intake Total 3457.000 ml Output Total 1000 ml Balance 2457.000 ml Intake Oral 240 ml IV Total 3217.000 ml Output Urine Total 1000 ml General Appearance: Alert, Cooperative HEENT: Atraumatic, PERRLA, EOMI Neck: Supple Lungs: Clear to auscultation, Normal air movement Cardiovascular: Regular rate, Normal S1, Normal S2, No murmurs, Gallops, Rubs Abdomen: Normal bowel sounds, Soft, No tenderness Extremities: Normal pulses Neuro: Cranial nerves 3-12 NL Psych/Mental Status: Mental status NL Medications Current Medications Medications Dose Ordered Sig/Annette Route Start Time Stop Time Status Last Admin Dose Admin Norepinephrine Bitartrate 250 ml @ 3.75 mls/hr Q24H IV 07/28/24 16:45 07/28/24 16:59 3.75 MLS/HR Sodium Chloride 10 ml Q8HR IV 07/28/24 22:00 07/29/24 05:32 10 ML Docusate Sodium 100 mg BIDPRN PRN PO 07/28/24 19:00 Acetaminophen 650 mg Q6HP PRN PO 07/28/24 19:00 07/28/24 23:15 650 MG Ondansetron HCl 4 mg Q4HP PRN IV 07/28/24 19:00 07/29/24 09:01 4 MG Enoxaparin Sodium 40 mg DAILY SC 07/29/24 10:00 07/29/24 10:25 40 MG Hydrocortisone Sodium Succinate 50 mg Q6H IV 07/28/24 21:45 Dopamine HCl/ Dextrose 250 ml @ 18.75 mls/ hr [id number] IV 07/28/24 22:15 07/29/24 10:08 45 MLS/HR Diagnostic Test (Pha) 1 strip ACHS 07/29/24 07:00 07/29/24 11:24 1 STRIP Insulin Human Regular HS SC 07/29/24 22:00 Insulin Human Regular AC SC 07/29/24 07:00 07/29/24 11:26 6 UNITS Dextrose 50 ml UD PRN IV 07/29/24 00:00 Acetaminophen/ Hydrocodone Bitart 1 tab Q6HPRN PRN PO 07/29/24 00:15 07/29/24 00:22 1 TAB Laboratory Results Laboratory Tests 07/29/24 05:07 Chemistry Test 07/28/24 14:48 07/29/24 05:07 Calcium Level 9.9 mg/dL (8.7-10.4) 10.0 mg/dL (8.7-10.4) Magnesium Level 1.8 mg/dL (1.6-2.6) Lipid panel Test 07/29/24 05:07 Cholesterol Level 113 mg/dL (< 200) HDL Cholesterol 57 mg/dL (40-59) Triglycerides Level 91 mg/dL (< 150) Cardiac Markers Test 07/29/24 05:07 B-Type Natriuretic Peptide 569.32 pg/mL (0-100) HgA1c, TSH Test 07/29/24 05:07 Hemoglobin A1c 10.1 % A1C (<5.7) H Thyroid Stimulating Hormone (TSH) 0.68 uIU/mL (0.55-4.78) Labs and/or images reviewed: Labs reviewed by me Assessment/Plan Assessment/Plan Symptomatic bradycardia Shock suspect cardiogenic possible septic Possible beta luis overdose Plan: Continuing current management. Stopped propranolol per cemetery keeper's recommendation Appreciate cemetery keeper's input Continuing dopamine drip per Cardiology We will follow up with echo This medical document was created using an electronic medical record system with [employer] direct computerized dictation system. Although this document has been carefully reviewed, there may still be some phonetic and typographical errors. These areas are purely typographical due to imperfections of the software programs, and do not reflect any compromise in the patient's medical care. Plan discussed with: Patient Date of Service: July 29, 2024 Billing Provider: OPAL BORDEN MD Common Visit Codes: [id number] INP/OBS CARE(HIGH) OPAL BORDEN MD July 29, 2024 13:13
[2024-07-29 15:18] LABS: Urine Bacteria MANY /hpf (None Seen); Urine Blood TRACE /uL (Negative); Urine Clarity Turbid (Clear); Urine Color Colorless (Yellow); Urine Mucus FEW (None Seen); Urine Protein, UAD Negative (Negative); Urine Specific Gravity 1.013 (1.001-1.035); Urine Squamous Epithelial Cell FEW /hpf (<5); Urine Urobilinogen Normal (Negative); Urine WBC 27 /HPF (0-5)
[2024-07-29 15:26] LABS: Amphetamine Screen, Urine Neg (NEGATIVE); Opiate Scree,Urine Neg (NEGATIVE)
[2024-07-29 15:27] LABS: Creatinine, Urine 58.64 mg/dL (30.0-125.0)
[2024-07-29 15:50] LABS: Barbiturate Scree,Urine Neg (NEGATIVE); Benzodiazephine Screen, Urine Neg (NEGATIVE); Cannabinoid Screen, Urine Neg (NEGATIVE); Cocaine Screen, Urine Neg (NEGATIVE); Phencyclidine Screen, Urine Neg (NEGATIVE)
[2024-07-30] VITALS (29 sets, daily range): BP systolic 98–134; BP diastolic 35–58; PULSE 52–74; RESP 14–31; TEMP 98.3–98.7; O2SAT 95–100
--- NOTE | 2024-07-30 09:38 | DVHPN2 ---
Consult Progress Note Date Seen: July 30, 2024 Subjective Patient reports: Feels better Review of Systems: CVS:Normal, RESPIRATORY:Normal, NEURO:Normal Objective vital signs Vital Sign Date Time Temp Pulse Resp B/P (MAP) Pulse Ox O2 Delivery O2 Flow Rate FiO2 07/30/24 09:09 104/40 07/30/24 07:15 98.2 52 16 95 98.2 07/30/24 07:15 Room Air* 0 21 Total Intake and Output 07/29/24 07/29/24 07/30/24 15:00 23:00 07:00 Intake Total 403.75 ml 366.25 ml 840.00 ml Output Total 1000 ml 800 ml Balance 403.75 ml -633.75 ml 40.00 ml medications Current Medications Medications Dose Ordered Sig/Annette Route Start Time Stop Time Status Last Admin Dose Admin Norepinephrine Bitartrate 250 ml @ 3.75 mls/hr Q24H IV 07/28/24 16:45 07/28/24 16:59 3.75 MLS/HR Sodium Chloride 10 ml Q8HR IV 07/28/24 22:00 07/30/24 05:45 10 ML Docusate Sodium 100 mg BIDPRN PRN PO 07/28/24 19:00 Acetaminophen 650 mg Q6HP PRN PO 07/28/24 19:00 07/28/24 23:15 650 MG Ondansetron HCl 4 mg Q4HP PRN IV 07/28/24 19:00 07/29/24 09:01 4 MG Enoxaparin Sodium 40 mg DAILY SC 07/29/24 10:00 07/29/24 10:25 40 MG Hydrocortisone Sodium Succinate 50 mg Q6H IV 07/28/24 21:45 07/29/24 21:45 50 MG Dopamine HCl/ Dextrose 250 ml @ 18.75 mls/ hr [id number] IV 07/28/24 22:15 07/30/24 04:11 15 MLS/HR Diagnostic Test (Pha) 1 strip ACHS 07/29/24 07:00 07/30/24 06:30 1 STRIP Insulin Human Regular HS SC 07/29/24 22:00 07/29/24 22:13 4 UNITS Insulin Human Regular AC SC 07/29/24 07:00 07/30/24 06:32 9 UNITS Dextrose 50 ml UD PRN IV 07/29/24 00:00 Acetaminophen/ Hydrocodone Bitart 1 tab Q6HPRN PRN PO 07/29/24 00:15 07/30/24 05:46 1 TAB Levothyroxine Sodium 88 mcg QAM@0600 PO 07/31/24 10:00 UNV Examination: LUNGS:Normal, CVS:Normal (NSR at 70s bpm. 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 Batista) Bradycardia likely secondary to propanolol 10mg and Cardizem 240mg use for which the patient was medicated with glucagon IV and is currently on a low-dose dopamine drip for chronotropic support. Attempt to titrate off dopamine for a target HR > 50 bpm. Avoid AV jana blocking agents. Notify Cardiology in the setting of a heart rate <30 bpm or high-degree AV blocks on monitor. Transthoracic echocardiogram revealed LVEF 65%. Scheduled for a nuclear cardiolite stress test. Continue single-antiplatelet therapy and lipid lowering agent given history of stent placement. Morning blood work pending at this time. DVT/VTE prophylaxis. Rest of plan per clinical course. Thank you for allowing us to participate in this patient's care. Please call if you have any questions or concerns. Critical care time: 30 min. This medical document was created using an electronic medical record system with voice recognition software and computerized dictation system. Although this document has been carefully reviewed, there might still be some phonetic and typographical errors. Occasional wrong-word or ``sound-alike substitutions may have occurred due to the inherent limitations of voice recognition software. These areas are purely typographical due to imperfections of the software programs and do not reflect any compromise in the patient's medical care. Please read the chart carefully and recognize, using context, where these substitutions have occurred. Plan discussed with: Patient, Other Date of Service: July 30, 2024 Billing Provider: BRITTANY OSBORN Cardiology Common Codes: [id number] CARE 30-74 MIN BRITTANY OSBORN July 30, 2024 09:38
[2024-07-30] MEDS ORDERED: OMEP20TA PO (09:41)
[2024-07-30] MEDS ORDERED: QUET25TA37 PO (09:41)
[2024-07-30] MEDS ORDERED: BUPR200T2 PO (09:42)
[2024-07-30] MEDS ORDERED: ASPI-543 PO (09:45)
[2024-07-30] MEDS ORDERED: VENL150T34 PO (09:45)
[2024-07-30] MEDS ORDERED: FURO1TAB31 PO (09:46)
[2024-07-30] MEDS ORDERED: FAMO-12 PO (09:46)
[2024-07-30] MEDS ORDERED: CHOL20007 OR (09:47)
[2024-07-30] MEDS ORDERED: FENO54TA4 PO (09:49)
[2024-07-30] MEDS ORDERED: FENO1CAP3 OR (09:51)
[2024-07-30] MEDS ORDERED: ATOR-507 PO (09:52)
[2024-07-30] MEDS ORDERED: CETI10CA PO (09:53)
[2024-07-30 10:04] LABS: Basophils # (auto) 0 10 ^3/uL (0-0.2); Basophils % (auto) 0.4 % (0.0-2.0); Eosinophils # (auto) 0 10 ^3/uL (0-0.8); Eosinophils % (auto) 0.1 % (0.0-7.0); Hematocrit 36.7 % (36.0-46.0); Hemoglobin 12.6 g/dL (12.2-16.2); Lymphocytes % (auto) 23.6 % (10.0-50.0); Mean Corpuscular Hemoglobin 30.6 pg (28.0-32.0); Mean Corpuscular Hgb Conc. 34.3 g/dL (32.0-36.0); Monocytes # (auto) 0.4 10 ^3/uL (0-1.3); Monocytes % (auto) 4.6 % (0.0-12.0); Neutrophils # (auto) 6.2 10 ^3/uL (1.6-8.6); Neutrophils % (auto) 71.3 % (37.0-80.0); Platelet Count (auto) 300 10^3/uL (140-450); Red Blood Cells 4.12 10^6/uL (4.0-5.20); Red Cell Distribution Width 13.5 % (11.8-14.3); White Blood Cell 8.7 10^3/uL (4.4-10.8)
[2024-07-30] MEDS: PANTOPRAZOLE 40 MG/10 ML VIAL INJ IV SCH (10:17)
[2024-07-30] MEDS: ASPirin 81 mg TAB PO SCH (10:17)
--- NOTE | 2024-07-30 14:24 | DVHPN2 ---
Subjective The patient is seen and examined at bedside. Still very drowsy and tired. Reviewed: Care Plan, H&P, Labs, Medications, Previous Orders, Radiology Changes from previous H/P or p: No Changes Objective Vitals Vital Signs Date Time Temp Pulse Resp B/P (MAP) Pulse Ox O2 Delivery O2 Flow Rate FiO2 07/30/24 14:00 56 14 98/54 (69) 97 07/30/24 07:15 98.2 98.2 07/30/24 07:15 Room Air* 0 21 Intake/Output Intake and Output 07/30/24 07:00 Intake Total 1610.00 ml Output Total 1800 ml Balance -190.00 ml Intake Oral 920 ml IV Total 690.00 ml Output Urine Total 1800 ml General Appearance: Alert, Cooperative HEENT: Atraumatic, PERRLA, EOMI Neck: Supple Lungs: Clear to auscultation, Normal air movement Cardiovascular: Regular rate, Normal S1, Normal S2, No murmurs, Gallops, Rubs Abdomen: Normal bowel sounds, Soft, No tenderness Extremities: Normal pulses Neuro: Cranial nerves 3-12 NL Psych/Mental Status: Mental status NL Medications Current Medications Medications Dose Ordered Sig/Annette Route Start Time Stop Time Status Last Admin Dose Admin Norepinephrine Bitartrate 250 ml @ 3.75 mls/hr Q24H IV 07/28/24 16:45 07/28/24 16:59 3.75 MLS/HR Sodium Chloride 10 ml Q8HR IV 07/28/24 22:00 07/30/24 14:14 10 ML Docusate Sodium 100 mg BIDPRN PRN PO 07/28/24 19:00 Acetaminophen 650 mg Q6HP PRN PO 07/28/24 19:00 07/28/24 23:15 650 MG Ondansetron HCl 4 mg Q4HP PRN IV 07/28/24 19:00 07/29/24 09:01 4 MG Enoxaparin Sodium 40 mg DAILY SC 07/29/24 10:00 07/30/24 10:17 40 MG Hydrocortisone Sodium Succinate 50 mg Q6H IV 07/28/24 21:45 07/29/24 21:45 50 MG Dopamine HCl/ Dextrose 250 ml @ 18.75 mls/ hr [id number] IV 07/28/24 22:15 07/30/24 04:11 15 MLS/HR Diagnostic Test (Pha) 1 strip ACHS 07/29/24 07:00 07/30/24 11:48 1 STRIP Insulin Human Regular HS SC 07/29/24 22:00 07/29/24 22:13 4 UNITS Insulin Human Regular AC SC 07/29/24 07:00 07/30/24 11:52 6 UNITS Dextrose 50 ml UD PRN IV 07/29/24 00:00 Acetaminophen/ Hydrocodone Bitart 1 tab Q6HPRN PRN PO 07/29/24 00:15 07/30/24 12:02 1 TAB Levothyroxine Sodium 88 mcg QAM@0600 PO 07/31/24 10:00 Aspirin 81 mg DAILY PO 07/30/24 10:00 07/30/24 10:17 81 MG Atorvastatin Calcium 40 mg HS PO 07/30/24 22:00 Pantoprazole Sodium 40 mg DAILY IV 07/30/24 10:00 07/30/24 10:17 40 MG Laboratory Results Laboratory Tests 07/29/24 05:07 07/30/24 09:48 Chemistry Test 07/30/24 09:48 Magnesium Level 2.1 mg/dL (1.6-2.6) Urinalysis Test 07/29/24 13:25 Urine Color Colorless (Yellow) Urine Clarity Turbid (Clear) H Urine pH 5.0 (5.0-9.0) Urine Specific [place] 1.013 (1.001-1.035) Urine Protein Negative (Negative) Urine Ketones Negative (Negative) Urine Blood Trace /uL (Negative) H Urine Nitrite Negative (Negative) Urine Bilirubin Negative (Negative) Urine Urobilinogen Normal mg/dL (Negative) Urine Leukocyte Esterase 3+ /uL (Negative) Urine RBC 9 /hpf (0 - 4) Urine Microscopic WBC 27 /HPF (0-5) H Urine Squamous Epithelial Cells Few /hpf (<5) Urine Bacteria Many /hpf (None Seen) H Urine Mucus Few (None Seen) Urine Creatinine 58.64 mg/dL (30.0-125.0) Urine Sodium 63 mmol/L (40-220) Urine Glucose 4+ mg/dL (Normal) H Labs and/or images reviewed: Labs reviewed by me Assessment/Plan Assessment/Plan Symptomatic bradycardia Shock suspect cardiogenic possible septic Possible beta luis overdose Plan: Continuing current management. Stopped propranolol per electronic news gathering editor's recommendation Appreciate electronic news gathering editor's input Continuing dopamine drip per Cardiology We will follow up with echo This medical document was created using an electronic medical record system with [employer] direct computerized dictation system. Although this document has been carefully reviewed, there may still be some phonetic and typographical errors. These areas are purely typographical due to imperfections of the software programs, and do not reflect any compromise in the patient's medical care. Plan discussed with: Patient Date of Service: July 30, 2024 Billing Provider: OPAL BORDEN MD Common Visit Codes: [id number] INP/OBS CARE(HIGH) OPAL BORDEN MD July 30, 2024 14:24
[2024-07-30] MEDS: cefTRIAXone 1GM/50ML D5W 50 ML IV ONE (15:08)
[2024-07-30] MEDS: DOPamine 1600MCG/ML D5W 250 ML IV SCH (15:15)
[2024-07-30 15:52] LABS: Alanine Aminotransferase 17 U/L (7-40); Albumin 3.8 g/dL (3.2-4.8); Alkaline Phosphatase 47 U/L (46-116); Anion Gap 11 (5-15); Aspartate Aminotransferase 17 U/L (13-40); Bilirubin, Total 0.4 mg/dL (0.2-1.0); Blood Urea Nitrogen 19 mg/dL (9-23); Calcium 10.3 mg/dL (8.7-10.4); Potassium 4.2 mmol/L (3.5-5.1); Sodium 140 mmol/L (136-145); Total Protein 6.2 g/dL (5.7-8.2)
[2024-07-30 15:53] LABS: Carbon Dioxide 19 mmol/L (20-31); Chloride 110 mmol/L (98-107); Glucose 245 mg/dL (74-106)
[2024-07-30] MEDS: ATORVASTATIN 20 MG TAB PO SCH (21:43)
[2024-07-30] MEDS: QUEtiapine FUMARATE 25 MG TAB PO SCH (21:44)
[2024-07-30] MEDS ORDERED: QUEtiapine FUMARATE 25 MG TAB PO SCH (22:00)
[2024-07-31] VITALS (8 sets, daily range): BP systolic 92–106; BP diastolic 44–60; PULSE 57–79; RESP 17–20; TEMP 97.6–98.1; O2SAT 98–100
[2024-07-31 06:34] LABS: Alanine Aminotransferase 14 U/L (7-40); Albumin 3.6 g/dL (3.2-4.8); Anion Gap 7 (5-15); Bilirubin, Total 0.3 mg/dL (0.2-1.0); Blood Urea Nitrogen 21 mg/dL (9-23); Calcium 10.1 mg/dL (8.7-10.4); Carbon Dioxide 26 mmol/L (20-31); Potassium 4.7 mmol/L (3.5-5.1); Sodium 143 mmol/L (136-145); Total Protein 5.8 g/dL (5.7-8.2)
[2024-07-31 06:39] LABS: Alkaline Phosphatase 41 U/L (46-116); Aspartate Aminotransferase 13 U/L (13-40); Chloride 110 mmol/L (98-107); Glucose 190 mg/dL (74-106)
[2024-07-31 07:56] LABS: Basophils # (auto) 0.1 10 ^3/uL (0-0.2); Eosinophils # (auto) 0.1 10 ^3/uL (0-0.8); Eosinophils % (auto) 2.1 % (0.0-7.0); Hemoglobin 12.1 g/dL (12.2-16.2); Lymphocytes # (auto) 3.3 10 ^3/uL (0.4-5.4); Lymphocytes % (auto) 53.4 % (10.0-50.0); Mean Corpuscular Hgb Conc. 33.6 g/dL (32.0-36.0); Mean Corpuscular Volume 89.2 fL (80.0-100.0); Monocytes # (auto) 0.3 10 ^3/uL (0-1.3); Monocytes % (auto) 5.2 % (0.0-12.0); Neutrophils # (auto) 2.3 10 ^3/uL (1.6-8.6); Neutrophils % (auto) 38.3 % (37.0-80.0); Nucleated Red Blood Cells % 0.1 %; Platelet Count (auto) 295 10^3/uL (140-450); Red Blood Cells 4.04 10^6/uL (4.0-5.20); Red Cell Distribution Width 13.6 % (11.8-14.3); White Blood Cell 6.1 10^3/uL (4.4-10.8)
[2024-07-31] MEDS: VENLAFAXINE HCL 37.5mg XR cap PO SCH (09:21)
[2024-07-31] MEDS: POTASSIUM CHL 20 Meq TABLET PO SCH (09:22)
[2024-07-31] MEDS: LORATADINE 10 MG TAB PO SCH (09:22)
[2024-07-31] MEDS: cefTRIAXone 1GM/50ML D5W 50 ML IV SCH (09:22)
[2024-07-31] MEDS: LEVOTHYROXINE SODIUM 88 MCG TAB PO SCH (09:38)
[2024-07-31] MEDS ORDERED: PATIENTS OWN MEDICATION (Omeprazole (Gnp Omeprazole) 40 MG) PO SCH (10:00)
[2024-07-31] MEDS ORDERED: PATIENTS OWN MEDICATION (Atorvastatin Calcium (Lipitor) 1 TAB) PO SCH (10:00)
--- NOTE | 2024-07-31 12:03 | DVHPN2 ---
Subjective The patient is seen and examined at bedside. Still very drowsy and tired. Remain on dopamine drip Reviewed: Care Plan, H&P, Labs, Medications, Previous Orders, Radiology Changes from previous H/P or p: No Changes Objective Vitals Vital Signs Date Time Temp Pulse Resp B/P (MAP) Pulse Ox O2 Delivery O2 Flow Rate FiO2 07/31/24 11:45 100/45 07/31/24 08:48 98.1 62 18 98 98.1 07/31/24 08:00 Nasal Cannula* 2 28 Intake/Output Intake and Output 07/31/24 07:00 Intake Total 165 ml Output Total 700 ml Balance -535 ml Intake Oral 100 ml IV Total 65 ml Output Urine Total 700 ml General Appearance: Alert, Cooperative HEENT: Atraumatic, PERRLA, EOMI Neck: Supple Lungs: Clear to auscultation, Normal air movement Cardiovascular: Regular rate, Normal S1, Normal S2, No murmurs, Gallops, Rubs Abdomen: Normal bowel sounds, Soft, No tenderness Extremities: Normal pulses Neuro: Cranial nerves 3-12 NL Psych/Mental Status: Mental status NL Medications Current Medications Medications Dose Ordered Sig/Annette Route Start Time Stop Time Status Last Admin Dose Admin Sodium Chloride 10 ml Q8HR IV 07/28/24 22:00 07/31/24 05:49 10 ML Docusate Sodium 100 mg BIDPRN PRN PO 07/28/24 19:00 Acetaminophen 650 mg Q6HP PRN PO 07/28/24 19:00 07/30/24 16:44 650 MG Ondansetron HCl 4 mg Q4HP PRN IV 07/28/24 19:00 07/29/24 09:01 4 MG Enoxaparin Sodium 40 mg DAILY SC 07/29/24 10:00 07/31/24 09:23 40 MG Hydrocortisone Sodium Succinate 50 mg Q6H IV 07/28/24 21:45 07/29/24 21:45 50 MG Diagnostic Test (Pha) 1 strip ACHS 07/29/24 07:00 07/31/24 11:45 1 STRIP Insulin Human Regular HS SC 07/29/24 22:00 07/30/24 21:53 3 UNITS Insulin Human Regular AC SC 07/29/24 07:00 07/31/24 11:50 6 UNITS Dextrose 50 ml UD PRN IV 07/29/24 00:00 Acetaminophen/ Hydrocodone Bitart 1 tab Q6HPRN PRN PO 07/29/24 00:15 07/31/24 09:38 1 TAB Levothyroxine Sodium 88 mcg QAM@0600 PO 07/31/24 10:00 07/31/24 09:38 88 MCG Aspirin 81 mg DAILY PO 07/30/24 10:00 07/31/24 09:22 81 MG Atorvastatin Calcium 40 mg HS PO 07/30/24 22:00 07/30/24 21:43 40 MG Pantoprazole Sodium 40 mg DAILY IV 07/30/24 10:00 07/31/24 09:23 40 MG Ceftriaxone Sodium 50 ml @ 100 mls/hr DAILY@09 IV 07/31/24 09:00 07/31/24 09:22 100 MLS/HR Dopamine HCl/ Dextrose 250 ml @ 7.44 mls/hr Q24H IV 07/30/24 15:15 07/31/24 11:45 3.72 MLS/HR Quetiapine Fumarate 25 mg BID PO 07/30/24 22:00 07/31/24 09:22 25 MG Loratadine 10 mg DAILY PO 07/31/24 10:00 07/31/24 09:22 10 MG Patient Own Medication 43 mg HS PO 07/31/24 22:00 Potassium Chloride 20 meq DAILY PO 07/31/24 10:00 07/31/24 09:22 20 MEQ Venlafaxine HCl 300 mg DAILY PO 07/31/24 10:00 07/31/24 09:21 300 MG Laboratory Results Laboratory Tests 07/31/24 04:55 Chemistry Test 07/31/24 04:55 Albumin 3.6 g/dL (3.2-4.8) Calcium Level 10.1 mg/dL (8.7-10.4) Total Protein 5.8 g/dL (5.7-8.2) LFT Test 07/31/24 04:55 Alanine Aminotransferase (ALT) 14 U/L (7-40) Alkaline Phosphatase 41 U/L (46-116) L Aspartate Amino Transferase (AST) 13 U/L (13-40) Total Bilirubin 0.3 mg/dL (0.2-1.0) Urinalysis Test 07/29/24 13:25 Urine Color Colorless (Yellow) Urine Clarity Turbid (Clear) H Urine pH 5.0 (5.0-9.0) Urine Specific [place] 1.013 (1.001-1.035) Urine Protein Negative (Negative) Urine Ketones Negative (Negative) Urine Blood Trace /uL (Negative) H Urine Nitrite Negative (Negative) Urine Bilirubin Negative (Negative) Urine Urobilinogen Normal mg/dL (Negative) Urine Leukocyte Esterase 3+ /uL (Negative) Urine RBC 9 /hpf (0 - 4) Urine Microscopic WBC 27 /HPF (0-5) H Urine Squamous Epithelial Cells Few /hpf (<5) Urine Bacteria Many /hpf (None Seen) H Urine Mucus Few (None Seen) Urine Creatinine 58.64 mg/dL (30.0-125.0) Urine Sodium 63 mmol/L (40-220) Urine Glucose 4+ mg/dL (Normal) H Assessment/Plan Assessment/Plan Symptomatic bradycardia Shock suspect cardiogenic possible septic Possible beta luis overdose Plan: Continuing current management. Stopped propranolol per mortician investigator's recommendation Appreciate mortician investigator's input Continuing dopamine drip per Cardiology We will follow up with echo This medical document was created using an electronic medical record system with [employer] computerized dictation system. Although this document has been carefully reviewed, there may still be some phonetic and typographical errors. These areas are purely typographical due to imperfections of the software programs, and do not reflect any compromise in the patient's medical care. Plan discussed with: Patient My Orders Orders - OPAL BORDEN MD Procedure Category Date Status Time Ceftriaxone 1gm/50ml PHA 07/31/24 In Process D5w (Rocephin) 09:00 Quetiapine Fumarate PHA 07/30/24 In Process Tablet (Seroquel Tab 22:00 Loratadine Tablet PHA 07/31/24 In Process (Claritin Tablet) 10:00 (Nf) Fenofibrate PHA 07/31/24 In Process 22:00 Potassium Er Tablet PHA 07/31/24 In Process (Klor-Con Tablet) 10:00 Venlafaxine Xr PHA 07/31/24 In Process (Effexor Xr) 10:00 Date of Service: July 31, 2024 Billing Provider: OPAL BORDEN MD Common Visit Codes: [id number] INP/OBS CARE(HIGH) OPAL BORDEN MD July 31, 2024 12:03
[2024-07-31] MEDS ORDERED: DOPamine 1600MCG/ML D5W 250 ML IV SCH (14:15)
--- NOTE | 2024-07-31 14:34 | DVHPN2 ---
Consult Progress Note Date Seen: July 31, 2024 Subjective Review of Systems: CVS:Normal, RESPIRATORY:Normal, NEURO:Normal Objective vital signs Vital Sign Date Time Temp Pulse Resp B/P (MAP) Pulse Ox O2 Delivery O2 Flow Rate FiO2 07/31/24 12:28 97.6 67 18 98/55 (69) 98 97.6 07/31/24 08:00 Nasal Cannula* 2 28 Total Intake and Output 07/30/24 07/30/24 07/31/24 15:00 23:00 07:00 Intake Total 15 ml 50 ml 100 ml Output Total 400 ml 300 ml Balance 15 ml -350 ml -200 ml medications Current Medications Medications Dose Ordered Sig/Annette Route Start Time Stop Time Status Last Admin Dose Admin Sodium Chloride 10 ml Q8HR IV 07/28/24 22:00 07/31/24 13:27 10 ML Docusate Sodium 100 mg BIDPRN PRN PO 07/28/24 19:00 Acetaminophen 650 mg Q6HP PRN PO 07/28/24 19:00 07/30/24 16:44 650 MG Ondansetron HCl 4 mg Q4HP PRN IV 07/28/24 19:00 07/29/24 09:01 4 MG Enoxaparin Sodium 40 mg DAILY SC 07/29/24 10:00 07/31/24 09:23 40 MG Hydrocortisone Sodium Succinate 50 mg Q6H IV 07/28/24 21:45 07/29/24 21:45 50 MG Diagnostic Test (Pha) 1 strip ACHS 07/29/24 07:00 07/31/24 11:45 1 STRIP Insulin Human Regular HS SC 07/29/24 22:00 07/30/24 21:53 3 UNITS Insulin Human Regular AC SC 07/29/24 07:00 07/31/24 11:50 6 UNITS Dextrose 50 ml UD PRN IV 07/29/24 00:00 Acetaminophen/ Hydrocodone Bitart 1 tab Q6HPRN PRN PO 07/29/24 00:15 07/31/24 09:38 1 TAB Levothyroxine Sodium 88 mcg QAM@0600 PO 07/31/24 10:00 07/31/24 09:38 88 MCG Aspirin 81 mg DAILY PO 07/30/24 10:00 07/31/24 09:22 81 MG Atorvastatin Calcium 40 mg HS PO 07/30/24 22:00 07/30/24 21:43 40 MG Pantoprazole Sodium 40 mg DAILY IV 07/30/24 10:00 07/31/24 09:23 40 MG Ceftriaxone Sodium 50 ml @ 100 mls/hr DAILY@09 IV 07/31/24 09:00 07/31/24 09:22 100 MLS/HR Quetiapine Fumarate 25 mg BID PO 07/30/24 22:00 07/31/24 09:22 25 MG Loratadine 10 mg DAILY PO 07/31/24 10:00 07/31/24 09:22 10 MG Patient Own Medication 43 mg HS PO 07/31/24 22:00 Potassium Chloride 20 meq DAILY PO 07/31/24 10:00 07/31/24 09:22 20 MEQ Venlafaxine HCl 300 mg DAILY PO 07/31/24 10:00 07/31/24 09:21 300 MG Dopamine HCl/ Dextrose 250 ml @ 3.72 mls/hr Q24H IV 07/31/24 14:15 UNV Examination: LUNGS:Normal, CVS:Normal, NEURO:Normal laboratory and microbiology Laboratory Tests 07/31/24 04:55 Test 07/31/24 04:55 Range/Units Serum Glucose 190 H 74-106 mg/dL Problem List/Assessment/Plan Problem List/Assessment/Plan 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 Lucas) Bradycardia likely secondary to propanolol 10mg and Cardizem 240mg use for which the patient was medicated with glucagon IV. Discontinue low-dose dopamine drip, current HR 80s bpm. Avoid AV jana blocking agents. Notify Cardiology in the setting of a heart rate <30 bpm or high-degree AV blocks on monitor. Transthoracic echocardiogram revealed LVEF 65%. Scheduled for a nuclear cardiolite stress test at first availability. Continue single-antiplatelet therapy and lipid lowering agent given history of stent placement. DVT/VTE prophylaxis. Rest of plan per clinical course. Thank you for allowing us to participate in this patient's care. Please call if you have any questions or concerns. Critical care time: 30 min. This medical document was created using an electronic medical record system with voice recognition software and computerized dictation system. Although this document has been carefully reviewed, there might still be some phonetic and typographical errors. Occasional wrong-word or ``sound-alike substitutions may have occurred due to the inherent limitations of voice recognition software. These areas are purely typographical due to imperfections of the software programs and do not reflect any compromise in the patient's medical care. Please read the chart carefully and recognize, using context, where these substitutions have occurred. Plan discussed with: Patient, Other Date of Service: July 31, 2024 Billing Provider: BRITTANY OSBORN Cardiology Common Codes: [id number] HOSP CARE(High BRITTANY OSBORN July 31, 2024 14:34
[2024-07-31] MEDS: FENOFIBRATE PO SCH (21:29)
[2024-08-01] VITALS (8 sets, daily range): BP systolic 92–108; BP diastolic 46–57; PULSE 73–127; RESP 16–20; TEMP 97.9–98.5; O2SAT 91–100
[2024-08-01 06:32] LABS: Alanine Aminotransferase 14 U/L (7-40); Albumin 3.3 g/dL (3.2-4.8); Anion Gap 7 (5-15); Aspartate Aminotransferase 13 U/L (13-40); BUN/Creatinine Ratio 15.4 (10.0-20.0); Blood Urea Nitrogen 23 mg/dL (9-23); Calcium 9.3 mg/dL (8.7-10.4); Carbon Dioxide 24 mmol/L (20-31); Potassium 4.7 mmol/L (3.5-5.1); Sodium 141 mmol/L (136-145)
[2024-08-01 06:34] LABS: Alkaline Phosphatase 37 U/L (46-116); Bilirubin, Total 0.2 mg/dL (0.2-1.0); Chloride 110 mmol/L (98-107); Glucose 124 mg/dL (74-106); Total Protein 5.4 g/dL (5.7-8.2)
[2024-08-01 07:14] LABS: Basophils # (auto) 0.1 10 ^3/uL (0-0.2); Eosinophils # (auto) 0.1 10 ^3/uL (0-0.8); Eosinophils % (auto) 2.2 % (0.0-7.0); Hematocrit 38.3 % (36.0-46.0); Hemoglobin 12.4 g/dL (12.2-16.2); Lymphocytes # (auto) 2.8 10 ^3/uL (0.4-5.4); Lymphocytes % (auto) 46.4 % (10.0-50.0); Mean Corpuscular Hemoglobin 29.5 pg (28.0-32.0); Mean Corpuscular Hgb Conc. 32.3 g/dL (32.0-36.0); Mean Corpuscular Volume 91.3 fL (80.0-100.0); Monocytes # (auto) 0.3 10 ^3/uL (0-1.3); Monocytes % (auto) 5.6 % (0.0-12.0); Neutrophils # (auto) 2.7 10 ^3/uL (1.6-8.6); Neutrophils % (auto) 44.8 % (37.0-80.0); Nucleated Red Blood Cells % 0.2 %; Platelet Count (auto) 294 10^3/uL (140-450); Red Cell Distribution Width 14.2 % (11.8-14.3); White Blood Cell 6.1 10^3/uL (4.4-10.8)
[2024-08-01] MEDS: REGADENOSON 0.4 MG/5 ML SYRG IV ONE (08:05)
--- NOTE | 2024-08-01 11:30 | DVHPN2 ---
Subjective The patient is seen and examined at bedside. Still very drowsy and tired.Very nausea today. No relieve with zofran. Reviewed: Care Plan, H&P, Labs, Medications, Previous Orders, Radiology Changes from previous H/P or p: No Changes Objective Vitals Vital Signs Date Time Temp Pulse Resp B/P (MAP) Pulse Ox O2 Delivery O2 Flow Rate FiO2 08/01/24 09:00 98.2 78 18 93/47 (62) 100 98.2 07/31/24 20:00 Nasal Cannula* 2 28 Intake/Output Intake and Output 08/01/24 07:00 Intake Total 850 ml Output Total 1100 ml Balance -250 ml Intake Oral 850 ml Output Urine Total 1100 ml General Appearance: Alert, Cooperative HEENT: Atraumatic, PERRLA, EOMI Neck: Supple Lungs: Clear to auscultation, Normal air movement Cardiovascular: Regular rate, Normal S1, Normal S2, No murmurs, Gallops, Rubs Abdomen: Normal bowel sounds, Soft, No tenderness Extremities: Normal pulses Neuro: Cranial nerves 3-12 NL Psych/Mental Status: Mental status NL Medications Current Medications Medications Dose Ordered Sig/Annette Route Start Time Stop Time Status Last Admin Dose Admin Sodium Chloride 10 ml Q8HR IV 07/28/24 22:00 08/01/24 06:01 10 ML Docusate Sodium 100 mg BIDPRN PRN PO 07/28/24 19:00 Acetaminophen 650 mg Q6HP PRN PO 07/28/24 19:00 07/30/24 16:44 650 MG Ondansetron HCl 4 mg Q4HP PRN IV 07/28/24 19:00 08/01/24 08:50 4 MG Enoxaparin Sodium 40 mg DAILY SC 07/29/24 10:00 08/01/24 09:33 40 MG Hydrocortisone Sodium Succinate 50 mg Q6H IV 07/28/24 21:45 07/29/24 21:45 50 MG Diagnostic Test (Pha) 1 strip ACHS 07/29/24 07:00 08/01/24 07:00 1 STRIP Insulin Human Regular HS SC 07/29/24 22:00 07/31/24 21:41 3 UNITS Insulin Human Regular AC SC 07/29/24 07:00 08/01/24 09:55 3 UNITS Dextrose 50 ml UD PRN IV 07/29/24 00:00 Acetaminophen/ Hydrocodone Bitart 1 tab Q6HPRN PRN PO 07/29/24 00:15 08/01/24 09:34 1 TAB Levothyroxine Sodium 88 mcg QAM@0600 PO 07/31/24 10:00 08/01/24 05:56 88 MCG Aspirin 81 mg DAILY PO 07/30/24 10:00 08/01/24 09:35 81 MG Atorvastatin Calcium 40 mg HS PO 07/30/24 22:00 07/31/24 21:23 40 MG Pantoprazole Sodium 40 mg DAILY IV 07/30/24 10:00 08/01/24 09:30 40 MG Ceftriaxone Sodium 50 ml @ 100 mls/hr DAILY@09 IV 07/31/24 09:00 08/01/24 09:35 100 MLS/HR Quetiapine Fumarate 25 mg BID PO 07/30/24 22:00 08/01/24 09:34 25 MG Loratadine 10 mg DAILY PO 07/31/24 10:00 08/01/24 09:34 10 MG Patient Own Medication 43 mg HS PO 07/31/24 22:00 Potassium Chloride 20 meq DAILY PO 07/31/24 10:00 08/01/24 09:35 20 MEQ Venlafaxine HCl 300 mg DAILY PO 07/31/24 10:00 07/31/24 09:21 300 MG Laboratory Results Laboratory Tests 08/01/24 05:43 Chemistry Test 08/01/24 05:43 Albumin 3.3 g/dL (3.2-4.8) Calcium Level 9.3 mg/dL (8.7-10.4) Total Protein 5.4 g/dL (5.7-8.2) L LFT Test 08/01/24 05:43 Alanine Aminotransferase (ALT) 14 U/L (7-40) Alkaline Phosphatase 37 U/L (46-116) L Aspartate Amino Transferase (AST) 13 U/L (13-40) Total Bilirubin 0.2 mg/dL (0.2-1.0) Urinalysis Test 07/29/24 13:25 Urine Color Colorless (Yellow) Urine Clarity Turbid (Clear) H Urine pH 5.0 (5.0-9.0) Urine Specific [place] 1.013 (1.001-1.035) Urine Protein Negative (Negative) Urine Ketones Negative (Negative) Urine Blood Trace /uL (Negative) H Urine Nitrite Negative (Negative) Urine Bilirubin Negative (Negative) Urine Urobilinogen Normal mg/dL (Negative) Urine Leukocyte Esterase 3+ /uL (Negative) Urine RBC 9 /hpf (0 - 4) Urine Microscopic WBC 27 /HPF (0-5) H Urine Squamous Epithelial Cells Few /hpf (<5) Urine Bacteria Many /hpf (None Seen) H Urine Mucus Few (None Seen) Urine Creatinine 58.64 mg/dL (30.0-125.0) Urine Sodium 63 mmol/L (40-220) Urine Glucose 4+ mg/dL (Normal) H Labs and/or images reviewed: Labs reviewed by me Assessment/Plan Assessment/Plan Symptomatic bradycardia Shock suspect cardiogenic possible septic Possible beta luis overdose Nausea/vomiting Plan: Continuing current management. Stopped propranolol per metal machine operator's recommendation Appreciate metal machine operator's input Continuing dopamine drip per Cardiology We will follow up with echo I will add reglan 5mg IV q8hPRN Stress test today. Waiting for the result. This medical document was created using an electronic medical record system with M[employer] direct computerized dictation system. Although this document has been carefully reviewed, there may still be some phonetic and typographical errors. These areas are purely typographical due to imperfections of the software programs, and do not reflect any compromise in the patient's medical care. Plan discussed with: Patient Date of Service: August 01, 2024 Billing Provider: OPAL BORDEN MD Common Visit Codes: [id number] INP/OBS CARE(HIGH) OPAL BORDEN MD August 01, 2024 11:30
--- NOTE | 2024-08-01 14:08 | DVHPN2 ---
Consult Progress Note Date Seen: August 01, 2024 Subjective Review of Systems: CVS:Normal, RESPIRATORY:Normal, GI:Abnormal, NEURO:Normal Other Systems: Notified of tachycardia. C/o N/V/epigastic pain Objective vital signs Vital Sign Date Time Temp Pulse Resp B/P (MAP) Pulse Ox O2 Delivery O2 Flow Rate FiO2 08/01/24 12:35 98.5 107 20 104/57 (73) 98 98.5 08/01/24 08:15 Nasal Cannula* 2 28 Total Intake and Output 07/31/24 07/31/24 08/01/24 15:00 23:00 07:00 Intake Total 300 ml 550 ml Output Total 350 ml 750 ml Balance -50 ml -200 ml medications Current Medications Medications Dose Ordered Sig/Annette Route Start Time Stop Time Status Last Admin Dose Admin Sodium Chloride 10 ml Q8HR IV 07/28/24 22:00 08/01/24 13:24 10 ML Docusate Sodium 100 mg BIDPRN PRN PO 07/28/24 19:00 Acetaminophen 650 mg Q6HP PRN PO 07/28/24 19:00 07/30/24 16:44 650 MG Ondansetron HCl 4 mg Q4HP PRN IV 07/28/24 19:00 08/01/24 13:01 4 MG Enoxaparin Sodium 40 mg DAILY SC 07/29/24 10:00 08/01/24 09:33 40 MG Hydrocortisone Sodium Succinate 50 mg Q6H IV 07/28/24 21:45 07/29/24 21:45 50 MG Diagnostic Test (Pha) 1 strip ACHS 07/29/24 07:00 08/01/24 11:30 1 STRIP Insulin Human Regular HS SC 07/29/24 22:00 07/31/24 21:41 3 UNITS Insulin Human Regular AC SC 07/29/24 07:00 08/01/24 09:55 3 UNITS Dextrose 50 ml UD PRN IV 07/29/24 00:00 Acetaminophen/ Hydrocodone Bitart 1 tab Q6HPRN PRN PO 07/29/24 00:15 08/01/24 09:34 1 TAB Levothyroxine Sodium 88 mcg QAM@0600 PO 07/31/24 10:00 08/01/24 05:56 88 MCG Aspirin 81 mg DAILY PO 07/30/24 10:00 08/01/24 09:35 81 MG Atorvastatin Calcium 40 mg HS PO 07/30/24 22:00 07/31/24 21:23 40 MG Pantoprazole Sodium 40 mg DAILY IV 07/30/24 10:00 08/01/24 09:30 40 MG Ceftriaxone Sodium 50 ml @ 100 mls/hr DAILY@09 IV 07/31/24 09:00 08/01/24 09:35 100 MLS/HR Quetiapine Fumarate 25 mg BID PO 07/30/24 22:00 08/01/24 09:34 25 MG Loratadine 10 mg DAILY PO 07/31/24 10:00 08/01/24 09:34 10 MG Patient Own Medication 43 mg HS PO 07/31/24 22:00 Potassium Chloride 20 meq DAILY PO 07/31/24 10:00 08/01/24 09:35 20 MEQ Venlafaxine HCl 300 mg DAILY PO 07/31/24 10:00 08/01/24 12:27 300 MG Examination: LUNGS:Normal, CVS:Normal (Sinus tachycardia 120s bpm), ABDOMEN:Abnormal (Active N/V), NEURO:Normal laboratory and microbiology Laboratory Tests 08/01/24 05:43 Test 08/01/24 05:43 Range/Units Serum Glucose 124 H 74-106 mg/dL Problem List/Assessment/Plan Problem List/Assessment/Plan 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 Lucas) Bradycardia likely secondary to propanolol 10mg and Cardizem 240mg use for which the patient was medicated with glucagon IV and on transient dopamine drip, current HR 80s bpm. Avoid AV jana blocking agents. Transthoracic echocardiogram revealed LVEF 65%. Nuclear cardiolite stress test complete with preliminary results deemed to be non-ischemic as reviewed by Dr. Lucas. Continue single-antiplatelet therapy and lipid lowering agent given history of stent placement. Currently with sinus tachycardia right after N/V event. C/o epigastric pain. Twelve-lead electrocardiogram obtained revealing a sinus tachycardia rhythm. Portable CXR completed. Scheduled for CT abd/pelv and IVF administration. DVT/VTE prophylaxis. Rest of plan per clinical course. Thank you for allowing us to participate in this patient's care. Please call if you have any questions or concerns. This medical document was created using an electronic medical record system with voice recognition software and computerized dictation system. Although this document has been carefully reviewed, there might still be some phonetic and typographical errors. Occasional wrong-word or ``sound-alike substitutions may have occurred due to the inherent limitations of voice recognition software. These areas are purely typographical due to imperfections of the software programs and do not reflect any compromise in the patient's medical care. Please read the chart carefully and recognize, using context, where these substitutions have occurred. Plan discussed with: Patient, Other Date of Service: August 01, 2024 Billing Provider: BRITTANY OSBORN Cardiology Common Codes: [id number] [facility] C[facility](High BRITTANY OSBORN August 01, 2024 14:08
--- NOTE | 2024-08-01 14:13 | DVH ---
EXAM: XY CHEST PORTABLE Indication: sob Technique: Single frontal view of the chest was obtained Comparison: XY CHEST XRAY 1 VIEW on DOS: 07/28/24, XY CHEST PORTABLE on DOS: 07/28/24 FINDINGS: Lines and Tubes: Right internal jugular central venous catheter tip projects over superior vena cava. Lungs: Mild pulmonary vascular congestion. Pleura: No effusion. No pneumothorax. Cardiomediastinal contours: Unremarkable Bones: No acute osseous abnormality. IMPRESSION: Mild pulmonary vascular congestion.
[2024-08-01] MEDS: SODIUM CHLORIDE 0.9% 1,000 ML IV SCH (14:36)
--- NOTE | 2024-08-01 14:54 | DVH ---
Exam: CT CT AB PEL WO CON-NO ORAL OR IV History: N/V/Epigastric pain Comparison Study: None TECHNIQUE: Multidetector CT of the abdomen and pelvis without IV contrast. Axial, coronal and sagitta l multiplanar reformats were obtained from the axial data set by the technologist. Radiation Dose Information: CT Dose: CTDI volume is 20.86 mGy. Dose-length product is 1127.99 mGy*cm FINDINGS: The lung bases are clear. Partially visualized heart is unremarkable. Status post cholecystectomy. Mild hepatomegaly. Otherwise, liver, spleen, and pancreas unremarkable. Mild hypoplasia of the adrenal glands.. Mild nonspecific bilateral perirenal fat stranding. Right-sided renal scarring. No hydronephrosis or renal calculi bilaterally. Bilateral ureters unremarkable. Urinary bladder is d ecompressed with hensley catheter in place. Focus of air within the urinary bladder which is most like ly iatrogenic. Uterus is not well-visualized. Question hysterectomy. Minimal fluid within the distal esophagus. Fluid within the nondistended stomach. Otherwise, stomach is unremarkable.. Small-bowel loops are fluid-filled and nondistended. Appendix is not well-visualized with no pericecal inflammatory reaction to suggest acute appendicitis . Sigmoid diverticulosis without diverticulitis. Small to moderate amount of fecal material within th e colon. No evidence of intraperitoneal free air or free fluid. No evidence of aortic aneurysm. Mild atherosclerotic calcification of the aorta. No significant lymphadenopathy. Subcutaneous emphysema of the bilateral ventral lower abdominal subcutaneous fat. Correlate for Possi ble recent injection site versus recent injury. Nonspecific focus of calcification over the Left vent ral lower abdominal subcutaneous fat. No destructive osseous lesions are noted. IMPRESSION: No evidence of acute abdominopelvic abnormalities. Small to moderate amount of fecal material within the colon. Liquid content within the nondistended stomach with fluid within the nondistended small bowel loops c orrelate for Possible mild gastroenteritis.
[2024-08-01] MEDS ORDERED: METOCLOPRAMIDE HCL 5MG/ml INJ 2ml VIAL IV SCH (18:00)
[2024-08-01] MEDS: DOCUSATE SOD 100 MG CAP PO PRN (22:01)
[2024-08-01] MEDS: METOCLOPRAMIDE HCL 5MG/ml INJ 2ml VIAL IV PRN (22:04)
[2024-08-02] VITALS (10 sets, daily range): BP systolic 90–104; BP diastolic 43–71; PULSE 60–109; RESP 16–20; TEMP 97.9–99.4; O2SAT 95–98
[2024-08-02 07:28] LABS: Basophils # (auto) 0 10 ^3/uL (0-0.2); Basophils % (auto) 0.3 % (0.0-2.0); Eosinophils # (auto) 0 10 ^3/uL (0-0.8); Eosinophils % (auto) 0.2 % (0.0-7.0); Hematocrit 35.9 % (36.0-46.0); Hemoglobin 11.8 g/dL (12.2-16.2); Lymphocytes # (auto) 1.1 10 ^3/uL (0.4-5.4); Lymphocytes % (auto) 17.9 % (10.0-50.0); Mean Corpuscular Hemoglobin 30.2 pg (28.0-32.0); Mean Corpuscular Hgb Conc. 32.9 g/dL (32.0-36.0); Mean Corpuscular Volume 91.8 fL (80.0-100.0); Monocytes # (auto) 0.5 10 ^3/uL (0-1.3); Monocytes % (auto) 7.4 % (0.0-12.0); Neutrophils # (auto) 4.6 10 ^3/uL (1.6-8.6); Neutrophils % (auto) 74.2 % (37.0-80.0); Nucleated Red Blood Cells % 0.2 %; Platelet Count (auto) 242 10^3/uL (140-450); Red Blood Cells 3.91 10^6/uL (4.0-5.20); Red Cell Distribution Width 14.5 % (11.8-14.3); White Blood Cell 6.2 10^3/uL (4.4-10.8)
[2024-08-02 07:47] LABS: Alanine Aminotransferase 24 U/L (7-40); Albumin 3.5 g/dL (3.2-4.8); Anion Gap 8 (5-15); Aspartate Aminotransferase 32 U/L (13-40); BUN/Creatinine Ratio 12.8 (10.0-20.0); Bilirubin, Total 0.5 mg/dL (0.2-1.0); Blood Urea Nitrogen 17 mg/dL (9-23); Calcium 9.6 mg/dL (8.7-10.4); Carbon Dioxide 22 mmol/L (20-31); Glucose 97 mg/dL (74-106); Potassium 4.2 mmol/L (3.5-5.1); Sodium 145 mmol/L (136-145)
[2024-08-02 07:49] LABS: Alkaline Phosphatase 42 U/L (46-116); Chloride 115 mmol/L (98-107); Total Protein 5.6 g/dL (5.7-8.2)
--- NOTE | 2024-08-02 11:29 | DVHSR ---
APPROVED REPORT Exam: Nuclear Stress Test Indication: Chest pain BMI: 0 Medical History Medical History: CAD S/P PCI to RCA X1 FELY, DLD, DM, , CKD, MORBID OBESITY Stress Test Details Stress Test: Pharmacologic stress testing performed using 0.4 mg of regadenoson per 5 mL given IV ov er 10 seconds. HR Resting HR: 88 bpmMax Heart Rate (APMHR): 152.317556 bpm Max HR Achieved: 136 bpmTarget HR (85% APMHR): 129.040899 bpm % of APMHR: 89.47 Recovery HR: 110 bpm BP Resting BP: 115/74 mmHg Recovery BP: 109/72 mmHg ECG Resting ECG: Sinus Rhythm Clinical Reason for Termination: Completed protocol Stress ECG Conclusion lvef 74% no severe stress induced ischemia noted NM EXAM: Myocardial Perfusion REST/STRESS Imaging Protocol: Rest Tc-99m/Stress Tc-99m 2 days Resting Data Rest SPECT myocardial perfusion imaging was performed in supine position 60 minutes following the int ravenous injection of 15.3 mCi of Tc-99m Sestamibi. Time of rest injection: 1300 Time of rest imagin Administration Route: IV Administration Site: Left Hand Pharmacologic Stress Pharmacologic stress test was performed by injecting Regadenoson 0.4 mg IV push followed by the intra venous injection of 25.9 mCi of Tc-99m Sestamibi. Time of stress injection: 00474 Time of stress imagin Administration Route: IV Administration Site: Left Hand Gated Stress SPECT was performed 120 minutes after stress injection. The images were gated to evaluate regional wall motion and calculate left ventricular ejection fracti on. Nuclear Conclusion Nuclear Findings: negative for ischemia lvef 74% no severe stress induced ischemia noted
--- NOTE | 2024-08-02 11:31 | DVHPN2 ---
Consult Progress Note Subjective Other Systems: The patient is in normal sinus rhythm on veterinary medicine doctor Denies any cardiac symptoms at time of assessment Objective vital signs Vital Sign Date Time Temp Pulse Resp B/P (MAP) Pulse Ox O2 Delivery O2 Flow Rate FiO2 08/02/24 09:00 98.7 102 20 90/44 (59) 98 98.7 08/02/24 07:30 Nasal Cannula* 2 28 Total Intake and Output 08/01/24 08/01/24 08/02/24 15:00 23:00 07:00 Intake Total 50 ml 105 ml 1390 ml Output Total 450 ml 350 ml Balance 50 ml -345 ml 1040 ml medications Current Medications Medications Dose Ordered Sig/Annette Route Start Time Stop Time Status Last Admin Dose Admin Sodium Chloride 10 ml Q8HR IV 07/28/24 22:00 08/02/24 06:08 10 ML Docusate Sodium 100 mg BIDPRN PRN PO 07/28/24 19:00 08/01/24 22:01 100 MG Acetaminophen 650 mg Q6HP PRN PO 07/28/24 19:00 07/30/24 16:44 650 MG Ondansetron HCl 4 mg Q4HP PRN IV 07/28/24 19:00 08/02/24 10:51 4 MG Enoxaparin Sodium 40 mg DAILY SC 07/29/24 10:00 08/02/24 09:18 40 MG Hydrocortisone Sodium Succinate 50 mg Q6H IV 07/28/24 21:45 07/29/24 21:45 50 MG Diagnostic Test (Pha) 1 strip ACHS 07/29/24 07:00 08/02/24 11:27 1 STRIP Insulin Human Regular HS SC 07/29/24 22:00 08/01/24 22:01 2 UNITS Insulin Human Regular AC SC 07/29/24 07:00 08/01/24 17:28 2 UNITS Dextrose 50 ml UD PRN IV 07/29/24 00:00 Acetaminophen/ Hydrocodone Bitart 1 tab Q6HPRN PRN PO 07/29/24 00:15 08/01/24 22:03 1 TAB Levothyroxine Sodium 88 mcg QAM@0600 PO 07/31/24 10:00 08/02/24 06:05 88 MCG Aspirin 81 mg DAILY PO 07/30/24 10:00 08/02/24 09:18 81 MG Atorvastatin Calcium 40 mg HS PO 07/30/24 22:00 08/01/24 21:54 40 MG Pantoprazole Sodium 40 mg DAILY IV 07/30/24 10:00 08/02/24 09:17 40 MG Ceftriaxone Sodium 50 ml @ 100 mls/hr DAILY@09 IV 07/31/24 09:00 08/02/24 09:17 100 MLS/HR Quetiapine Fumarate 25 mg BID PO 07/30/24 22:00 08/02/24 09:18 25 MG Loratadine 10 mg DAILY PO 07/31/24 10:00 08/02/24 09:17 10 MG Patient Own Medication 43 mg HS PO 07/31/24 22:00 Venlafaxine HCl 300 mg DAILY PO 07/31/24 10:00 08/02/24 09:17 300 MG Sodium Chloride 1,000 ml @ 75 mls/hr [id number] IV 08/01/24 14:15 08/02/24 03:43 75 MLS/HR Metoclopramide HCl 5 mg Q6HR IV 08/01/24 18:00 Cancel Metoclopramide HCl 5 mg Q6HPRN PRN IV 08/01/24 18:15 08/01/24 22:04 5 MG Examination: GENERAL:Normal, LUNGS:Normal, CVS:Normal, NEURO:Normal laboratory and microbiology Laboratory Tests 08/02/24 06:39 Test 08/02/24 06:39 Range/Units Serum Glucose 97 74-106 mg/dL Problem List/Assessment/Plan Problem List/Assessment/Plan 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 Lucas) Bradycardia likely secondary to propanolol 10mg and Cardizem 240mg use for which the patient was medicated with glucagon IV and a transient dopamine drip, which is now off. Patient is currently in normal sinus rhythm with HR 90s bpm. Avoid AV jana blocking agents. Transthoracic echocardiogram revealed LVEF 65%. Nuclear cardiolite stress test results findings are negative for ischemia. Continue single-antiplatelet therapy and lipid lowering agent given history of stent placement. DVT/VTE prophylaxis. There is no further inpatient cardiac workup indicated at this time. The patient states that she will follow up with her primary home theater installer in the outpatient setting post discharge. Thank you for allowing us to participate in this patient's care. Please call if you have any questions or concerns. This medical document was created using an electronic medical record system with voice recognition software and computerized dictation system. Although this document has been carefully reviewed, there might still be some phonetic and typographical errors. Occasional wrong-word or ``sound-alike substitutions may have occurred due to the inherent limitations of voice recognition software. These areas are purely typographical due to imperfections of the software programs and do not reflect any compromise in the patient's medical care. Please read the chart carefully and recognize, using context, where these substitutions have occurred. Plan discussed with: Patient Date of Service: August 02, 2024 Billing Provider: SHOBHA BROWN Common Visit Codes: [id number] INP/OBS CARE(HIGH) SHOBHA BROWN August 02, 2024 11:31
--- NOTE | 2024-08-02 12:10 | DVHPN2 ---
Subjective The patient is seen and examined at bedside. No nausea/vomiting today. Tolerate diet Reviewed: Care Plan, H&P, Labs, Medications, Previous Orders, Radiology Changes from previous H/P or p: No Changes Objective Vitals Vital Signs Date Time Temp Pulse Resp B/P (MAP) Pulse Ox O2 Delivery O2 Flow Rate FiO2 08/02/24 09:00 98.7 102 20 90/44 (59) 98 98.7 08/02/24 07:30 Nasal Cannula* 2 28 Intake/Output Intake and Output 08/02/24 07:00 Intake Total 1545 ml Output Total 800 ml Balance 745 ml Intake Oral 345 ml IV Total 1200 ml Output Urine Total 800 ml # Bowel Movements 1 General Appearance: Alert, Cooperative HEENT: Atraumatic, PERRLA, EOMI Neck: Supple Lungs: Clear to auscultation, Normal air movement Cardiovascular: Regular rate, Normal S1, Normal S2, No murmurs, Gallops, Rubs Abdomen: Normal bowel sounds, Soft, No tenderness Extremities: Normal pulses Neuro: Cranial nerves 3-12 NL Psych/Mental Status: Mental status NL Medications Current Medications Medications Dose Ordered Sig/Annette Route Start Time Stop Time Status Last Admin Dose Admin Sodium Chloride 10 ml Q8HR IV 07/28/24 22:00 08/02/24 06:08 10 ML Docusate Sodium 100 mg BIDPRN PRN PO 07/28/24 19:00 08/01/24 22:01 100 MG Acetaminophen 650 mg Q6HP PRN PO 07/28/24 19:00 07/30/24 16:44 650 MG Ondansetron HCl 4 mg Q4HP PRN IV 07/28/24 19:00 08/02/24 10:51 4 MG Enoxaparin Sodium 40 mg DAILY SC 07/29/24 10:00 08/02/24 09:18 40 MG Hydrocortisone Sodium Succinate 50 mg Q6H IV 07/28/24 21:45 07/29/24 21:45 50 MG Diagnostic Test (Pha) 1 strip ACHS 07/29/24 07:00 08/02/24 11:27 1 STRIP Insulin Human Regular HS SC 07/29/24 22:00 08/01/24 22:01 2 UNITS Insulin Human Regular AC SC 07/29/24 07:00 08/01/24 17:28 2 UNITS Dextrose 50 ml UD PRN IV 07/29/24 00:00 Acetaminophen/ Hydrocodone Bitart 1 tab Q6HPRN PRN PO 07/29/24 00:15 08/01/24 22:03 1 TAB Levothyroxine Sodium 88 mcg QAM@0600 PO 07/31/24 10:00 08/02/24 06:05 88 MCG Aspirin 81 mg DAILY PO 07/30/24 10:00 08/02/24 09:18 81 MG Atorvastatin Calcium 40 mg HS PO 07/30/24 22:00 08/01/24 21:54 40 MG Pantoprazole Sodium 40 mg DAILY IV 07/30/24 10:00 08/02/24 09:17 40 MG Ceftriaxone Sodium 50 ml @ 100 mls/hr DAILY@09 IV 07/31/24 09:00 08/02/24 09:17 100 MLS/HR Quetiapine Fumarate 25 mg BID PO 07/30/24 22:00 08/02/24 09:18 25 MG Loratadine 10 mg DAILY PO 07/31/24 10:00 08/02/24 09:17 10 MG Patient Own Medication 43 mg HS PO 07/31/24 22:00 Venlafaxine HCl 300 mg DAILY PO 07/31/24 10:00 08/02/24 09:17 300 MG Sodium Chloride 1,000 ml @ 75 mls/hr [id number] IV 08/01/24 14:15 08/02/24 03:43 75 MLS/HR Metoclopramide HCl 5 mg Q6HR IV 08/01/24 18:00 Cancel Metoclopramide HCl 5 mg Q6HPRN PRN IV 08/01/24 18:15 08/01/24 22:04 5 MG Laboratory Results Laboratory Tests 08/02/24 06:39 Chemistry Test 08/02/24 06:39 Albumin 3.5 g/dL (3.2-4.8) Calcium Level 9.6 mg/dL (8.7-10.4) Total Protein 5.6 g/dL (5.7-8.2) L LFT Test 08/02/24 06:39 Alanine Aminotransferase (ALT) 24 U/L (7-40) Alkaline Phosphatase 42 U/L (46-116) L Aspartate Amino Transferase (AST) 32 U/L (13-40) Total Bilirubin 0.5 mg/dL (0.2-1.0) Urinalysis Test 07/29/24 13:25 Urine Color Colorless (Yellow) Urine Clarity Turbid (Clear) H Urine pH 5.0 (5.0-9.0) Urine Specific [place] 1.013 (1.001-1.035) Urine Protein Negative (Negative) Urine Ketones Negative (Negative) Urine Blood Trace /uL (Negative) H Urine Nitrite Negative (Negative) Urine Bilirubin Negative (Negative) Urine Urobilinogen Normal mg/dL (Negative) Urine Leukocyte Esterase 3+ /uL (Negative) Urine RBC 9 /hpf (0 - 4) Urine Microscopic WBC 27 /HPF (0-5) H Urine Squamous Epithelial Cells Few /hpf (<5) Urine Bacteria Many /hpf (None Seen) H Urine Mucus Few (None Seen) Urine Creatinine 58.64 mg/dL (30.0-125.0) Urine Sodium 63 mmol/L (40-220) Urine Glucose 4+ mg/dL (Normal) H Labs and/or images reviewed: Labs reviewed by me Assessment/Plan Assessment/Plan Symptomatic bradycardia Shock suspect cardiogenic possible septic Possible beta luis overdose Nausea/vomiting, resolved. Plan: Continuing current management. Stopped propranolol per quarantine inspector's recommendation Appreciate quarantine inspector's input Stress test negative for ischemia Patient was discharge today, however, she state that no one at home to open the door for her. She doesn't have a santo to get in her house. D/C in am. This medical document was created using an electronic medical record system with [employer] direct computerized dictation system. Although this document has been carefully reviewed, there may still be some phonetic and typographical errors. These areas are purely typographical due to imperfections of the software programs, and do not reflect any compromise in the patient's medical care. Plan discussed with: Patient My Orders Orders - OPAL BORDEN MD Procedure Category Date Status Time Metoclopramide PHA 08/01/24 In Process Injection (Reglan 18:15 Date of Service: August 02, 2024 Billing Provider: OPAL BORDEN MD Common Visit Codes: [id number] INP/OBS CARE(HIGH) OPAL BRODEN MD August 02, 2024 12:10
--- NOTE | 2024-08-02 14:12 | ECG ---
[facility] Test Date: 2024-07-28 Test Time: 14:43:28 Pat Name: JASON GEORGE [facility] F Program Engineer: ALEXEY : [id number] Requested By: BRITTANY OSBORN Order Number: [id number] Reading MD: Bobby Lucas Measurements Intervals [place] Rate: 72 P: 16 ME: 222 QRS: -10 QRSD: 97 T: 34 QT: 431 QTc: 472 Interpretive Statements Sinus rhythm Prolonged ME interval Low voltage, precordial leads Consider anterior infarct Electronically Signed On 08-05-2024 21:37:42 PDT by Bobby Lucas Please click the below link to view image of tracing.
[2024-08-02] MEDS ORDERED: NITR-87 PO (15:08)
--- NOTE | 2024-08-02 15:10 | DVHDS2 ---
Discharge Summary Date of Admission July 28, 2024 at 18:49 Date of Discharge: August 02, 2024 Labs/Diagnostic Data: Laboratory Results Test 08/02/24 06:46 08/02/24 06:39 07/30/24 09:48 07/29/24 15:18 POC Glucose 67 mg/dl (70-106) White Blood Count 6.2 10^3/uL (4.4-10.8) Red Blood Count 3.91 10^6/uL (4.0-5.20) Hemoglobin 11.8 g/dL (12.2-16.2) Hematocrit 35.9 % (36.0-46.0) Mean Corpuscular Volume 91.8 fL (80.0-100.0) Mean Corpuscular Hemoglobin 30.2 pg (28.0-32.0) Mean Corpuscular Hemoglobin Concent 32.9 g/dL (32.0-36.0) Red Cell Distribution Width 14.5 % (11.8-14.3) Platelet Count 242 10^3/uL (140-450) Mean Platelet Volume 8.8 fL (6.9-10.8) Neutrophils (%) (Auto) 74.2 % (37.0-80.0) Lymphocytes (%) (Auto) 17.9 % (10.0-50.0) Monocytes (%) (Auto) 7.4 % (0.0-12.0) Eosinophils (%) (Auto) 0.2 % (0.0-7.0) Basophils (%) (Auto) 0.3 % (0.0-2.0) Neutrophils # (Auto) 4.6 10 ^3/uL (1.6-8.6) Lymphocytes # (Auto) 1.1 10 ^3/uL (0.4-5.4) Monocytes # (Auto) 0.5 10 ^3/uL (0-1.3) Eosinophils # (Auto) 0 10 ^3/uL (0-0.8) Basophils # (Auto) 0 10 ^3/uL (0-0.2) Nucleated Red Blood Cells 0.2 % Sodium Level 145 mmol/L (136-145) Potassium Level 4.2 mmol/L (3.5-5.1) Chloride Level 115 mmol/L (98-107) Carbon Dioxide Level 22 mmol/L (20-31) Anion Gap 8 (5-15) Blood Urea Nitrogen 17 mg/dL (9-23) Creatinine 1.33 mg/dL (0.550-1.02) Glomerular Filtration Rate Calc 44 mL/min (>90) BUN/Creatinine Ratio 12.8 (10.0-20.0) Serum Glucose 97 mg/dL (74-106) Calcium Level 9.6 mg/dL (8.7-10.4) Total Bilirubin 0.5 mg/dL (0.2-1.0) Aspartate Amino Transferase (AST) 32 U/L (13-40) Alanine Aminotransferase (ALT) 24 U/L (7-40) Alkaline Phosphatase 42 U/L (46-116) Total Protein 5.6 g/dL (5.7-8.2) Albumin 3.5 g/dL (3.2-4.8) Magnesium Level 2.1 mg/dL (1.6-2.6) Cortisol PM Sample 29.91 ug/dL (3.44-16.76) Test 07/29/24 13:25 07/29/24 05:07 07/28/24 18:08 07/28/24 14:48 Urine Color Colorless (Yellow) Urine Clarity Turbid (Clear) Urine pH 5.0 (5.0-9.0) Urine Specific [place] 1.013 (1.001-1.035) Urine Protein Negative (Negative) Urine Ketones Negative (Negative) Urine Blood Trace /uL (Negative) Urine Nitrite Negative (Negative) Urine Bilirubin Negative (Negative) Urine Urobilinogen Normal mg/dL (Negative) Urine Leukocyte Esterase 3+ /uL (Negative) Urine RBC 9 /hpf (0 - 4) Urine Microscopic WBC 27 /HPF (0-5) Urine Squamous Epithelial Cells Few /hpf (<5) Urine Bacteria Many /hpf (None Seen) Urine Mucus Few (None Seen) Urine Creatinine 58.64 mg/dL (30.0-125.0) Urine Sodium 63 mmol/L (40-220) Urine Glucose 4+ mg/dL (Normal) Urine Opiates Screen Neg (NEGATIVE) Urine Fentanyl Screen Neg (NEGATIVE) Urine Barbiturates Screen Neg (NEGATIVE) Urine Phencyclidine Screen Neg (NEGATIVE) Urine Amphetamines Screen Neg (NEGATIVE) Urine Benzodiazepines Screen Neg (NEGATIVE) Urine Cocaine Screen Neg (NEGATIVE) Urine Cannabinoids Screen Neg (NEGATIVE) Hemoglobin A1c 10.1 % A1C (<5.7) B-Type Natriuretic Peptide 569.32 pg/mL (0-100) Triglycerides Level 91 mg/dL (< 150) Cholesterol Level 113 mg/dL (< 200) LDL Cholesterol 38 mg/dL (< 100) HDL Cholesterol 57 mg/dL (40-59) Thyroid Stimulating Hormone (TSH) 0.68 uIU/mL (0.55-4.78) Lactic Acid Level 0.9 mmol/L (0.4-2.0) Troponin I High Sensitivity < 3 ng/L (</=34) C-Reactive Protein High Sensitivity 0.07 mg/dL (<1.0) Other Laboratory Tests 08/02/24 06:39 Final Diagnosis/Problems List UTI Bradycardia cause by propanolol Discharge Disposition: Home Discharge Instruct/Medications Diet: Cardiac 2g Na,low cholest Activity: No Restrictions, As Tolerated Follow Up/Referral: Cardiology, Dr singletary per schedule pcp 1-2 weeks Medications: resume home meds macrobid 100mgbid x 7 days Discharge Statement: "Patient was advised to return to the ER or call 911 if any headaches, dizziness, shortness of breath, chest pain, abdominal pain, bleeding, fevers, or worsening of medical condition. Patient was counseled about treatment plan, medications, possible side effects, patientverbalized understanding. All questions were answered to the best of my ability. This discharge took greater then 30 minutes in planning, reviewing documentation, counseling the patient, and discussing with other team members." ASSESSMENT ASSESSMENT Assessment UTI Bradycardia cause by propanolol OPAL BORDEN MD August 02, 2024 15:10
[2024-08-03 01:00] VITALS: BP 106/66; PULSE 87; RESP 18; TEMP 97.6; O2SAT 97
[2024-08-03 05:00] VITALS: BP 115/53; PULSE 69; RESP 18; TEMP 97.9; O2SAT 96
[2024-08-03 08:00] VITALS: PULSE 82; RESP 19; O2SAT 97
[2024-08-03 08:57] VITALS: BP 111/65; PULSE 79; RESP 18; TEMP 97.3; O2SAT 96
--- NOTE | 2024-08-03 12:13 | DVHDS2 ---
Discharge Summary Date of Admission July 28, 2024 at 18:49 Date of Discharge: August 03, 2024 Admitting Diagnosis Symptomatic bradycardia Shock suspect cardiogenic possible septic Possible beta luis overdose NA Labs/Diagnostic Data: Laboratory Results Test 08/03/24 11:07 08/02/24 06:39 07/30/24 09:48 07/29/24 15:18 POC Glucose 143 mg/dl (70-106) White Blood Count 6.2 10^3/uL (4.4-10.8) Red Blood Count 3.91 10^6/uL (4.0-5.20) Hemoglobin 11.8 g/dL (12.2-16.2) Hematocrit 35.9 % (36.0-46.0) Mean Corpuscular Volume 91.8 fL (80.0-100.0) Mean Corpuscular Hemoglobin 30.2 pg (28.0-32.0) Mean Corpuscular Hemoglobin Concent 32.9 g/dL (32.0-36.0) Red Cell Distribution Width 14.5 % (11.8-14.3) Platelet Count 242 10^3/uL (140-450) Mean Platelet Volume 8.8 fL (6.9-10.8) Neutrophils (%) (Auto) 74.2 % (37.0-80.0) Lymphocytes (%) (Auto) 17.9 % (10.0-50.0) Monocytes (%) (Auto) 7.4 % (0.0-12.0) Eosinophils (%) (Auto) 0.2 % (0.0-7.0) Basophils (%) (Auto) 0.3 % (0.0-2.0) Neutrophils # (Auto) 4.6 10 ^3/uL (1.6-8.6) Lymphocytes # (Auto) 1.1 10 ^3/uL (0.4-5.4) Monocytes # (Auto) 0.5 10 ^3/uL (0-1.3) Eosinophils # (Auto) 0 10 ^3/uL (0-0.8) Basophils # (Auto) 0 10 ^3/uL (0-0.2) Nucleated Red Blood Cells 0.2 % Sodium Level 145 mmol/L (136-145) Potassium Level 4.2 mmol/L (3.5-5.1) Chloride Level 115 mmol/L (98-107) Carbon Dioxide Level 22 mmol/L (20-31) Anion Gap 8 (5-15) Blood Urea Nitrogen 17 mg/dL (9-23) Creatinine 1.33 mg/dL (0.550-1.02) Glomerular Filtration Rate Calc 44 mL/min (>90) BUN/Creatinine Ratio 12.8 (10.0-20.0) Serum Glucose 97 mg/dL (74-106) Calcium Level 9.6 mg/dL (8.7-10.4) Total Bilirubin 0.5 mg/dL (0.2-1.0) Aspartate Amino Transferase (AST) 32 U/L (13-40) Alanine Aminotransferase (ALT) 24 U/L (7-40) Alkaline Phosphatase 42 U/L (46-116) Total Protein 5.6 g/dL (5.7-8.2) Albumin 3.5 g/dL (3.2-4.8) Magnesium Level 2.1 mg/dL (1.6-2.6) Cortisol PM Sample 29.91 ug/dL (3.44-16.76) Test 07/29/24 13:25 07/29/24 05:07 07/28/24 18:08 07/28/24 14:48 Urine Color Colorless (Yellow) Urine Clarity Turbid (Clear) Urine pH 5.0 (5.0-9.0) Urine Specific [place] 1.013 (1.001-1.035) Urine Protein Negative (Negative) Urine Ketones Negative (Negative) Urine Blood Trace /uL (Negative) Urine Nitrite Negative (Negative) Urine Bilirubin Negative (Negative) Urine Urobilinogen Normal mg/dL (Negative) Urine Leukocyte Esterase 3+ /uL (Negative) Urine RBC 9 /hpf (0 - 4) Urine Microscopic WBC 27 /HPF (0-5) Urine Squamous Epithelial Cells Few /hpf (<5) Urine Bacteria Many /hpf (None Seen) Urine Mucus Few (None Seen) Urine Creatinine 58.64 mg/dL (30.0-125.0) Urine Sodium 63 mmol/L (40-220) Urine Glucose 4+ mg/dL (Normal) Urine Opiates Screen Neg (NEGATIVE) Urine Fentanyl Screen Neg (NEGATIVE) Urine Barbiturates Screen Neg (NEGATIVE) Urine Phencyclidine Screen Neg (NEGATIVE) Urine Amphetamines Screen Neg (NEGATIVE) Urine Benzodiazepines Screen Neg (NEGATIVE) Urine Cocaine Screen Neg (NEGATIVE) Urine Cannabinoids Screen Neg (NEGATIVE) Hemoglobin A1c 10.1 % A1C (<5.7) B-Type Natriuretic Peptide 569.32 pg/mL (0-100) Triglycerides Level 91 mg/dL (< 150) Cholesterol Level 113 mg/dL (< 200) LDL Cholesterol 38 mg/dL (< 100) HDL Cholesterol 57 mg/dL (40-59) Thyroid Stimulating Hormone (TSH) 0.68 uIU/mL (0.55-4.78) Lactic Acid Level 0.9 mmol/L (0.4-2.0) Troponin I High Sensitivity < 3 ng/L (</=34) C-Reactive Protein High Sensitivity 0.07 mg/dL (<1.0) Other Laboratory Tests 08/02/24 06:39 Brief Hx & Hospital Course: This is a 69 years old female who brought in by paramedics from home because of burning on urination and generalized weakness. The patient recently had urinary tract infection and was treated with Cipro for one week. When medical sales representative arrived her heart rate is in the 30-40. She was given atropine and one dose of epi push. Her blood pressure was 60 a systolic in ER. The patient was put on dopamine drip. The patient apparently takes propranolol and cardizem, so propranolol was stopped. Health Associate see the patient. Echo was done. Normal EF 65%. Recommend to stop propranolol. Cardiac stress test showed no ischemic. The patient suffered a nausea and vomiting. The patient was treated with Zofran. Today she is tolerate diet in heart rate is within normal range. The patient also found to have urinary tract infection. The patient was treated with IV antibiotic Rocephin. Culture showed no growth. I am discharge the patient home today. Advised her to follow up with primary care physician 1-2 weeks. Follow up with biometrics analyst per schedule. Activity as tolerated. Diet low-salt low-cholesterol diet. Physical exam: HEENT: Normocephalic atraumatic pupils equal react to light and accommodation. Extraocular muscles intact, conjunctiva pink, oropharynx moist, no thrush, no exudate. Lymphatic: No lymphadenopathy Cardiovascular exam: S1, S2 was heard. No murmurs, rubs, gallops Lung: Clear on auscultation bilaterally, no wheeze, rale, rhonchi. GI: Abdominal soft, nondistended, nontenderness, positive bowel sounds. Extremity: No crepitus, cyanosis, edema. Pedal pulses present bilateral. Full range of motion. Skin: Normal turgor, no rash. Psych: Alert, oriented x3. Neurology: No focal deficits, cranial nerve II to XII grossly intact. This medical document was created using an electronic medical record system with [employer] direct computerized dictation system. Although this document has been carefully reviewed, there may still be some phonetic and typographical errors. These areas are purely typographical due to imperfections of the software programs, and do not reflect any compromise in the patient's medical care. Condition at Discharge: Stable Final Diagnosis/Problems List UTI Bradycardia cause by propanolol Symptomatic bradycardia Shock suspect cardiogenic , resolved. HTN NA, secondary to dehytration, VMN Discharge Disposition: Home Discharge Instruct/Medications Diet: Cardiac 2g Na,low cholest Activity: No Restrictions, As Tolerated Follow Up/Referral: Cardiology, Dr singletary per schedule pcp 1-2 weeks Medications: resume home meds macrobid 100mgbid x 7 days Discharge Statement: "Patient was advised to return to the ER or call 911 if any headaches, dizziness, shortness of breath, chest pain, abdominal pain, bleeding, fevers, or worsening of medical condition. Patient was counseled about treatment plan, medications, possible side effects, patientverbalized understanding. All questions were answered to the best of my ability. This discharge took greater then 30 minutes in planning, reviewing documentation, counseling the patient, and discussing with other team members." ASSESSMENT ASSESSMENT Assessment UTI Bradycardia cause by propanolol Date of Service: August 03, 2024 Billing Provider: OPAL BORDEN MD Common Visit Codes: 78256-DZI/OBS DISCH DAY >30min OPAL BORDEN MD August 03, 2024 12:13
[2024-08-03 12:34] VITALS: TEMP 36.3
[2024-08-03 13:00] VITALS: BP 109/70; PULSE 82; RESP 18; TEMP 97.3; O2SAT 97
== END 2024-08-03 15:30 | disposition home health service (06) | DRG 689 ==
LOC: ER 14:34 → EDBD 14:34 → OVERFLOW 18:49 → TELE-WESTW 07-30 19:09
PROVIDERS: ADMIT Internal Medicine; ATTEND Internal Medicine
DX: N30.01 Acute cystitis with hematuria (principal); N17.0 Acute kidney failure with tubular necrosis; R57.0 Cardiogenic shock; I13.0 Hypertensive heart and chronic kidney disease with heart failure and stage 1 through stage 4 chronic kidney disease, or unspecified chronic kidney disease; I50.9 Heart failure, unspecified; E66.01 Morbid (severe) obesity due to excess calories; E11.22 Type 2 diabetes mellitus with diabetic chronic kidney disease; N18.30 Chronic kidney disease, stage 3 unspecified; T50.995A Adverse effect of other drugs, medicaments and biological substances, initial encounter; E78.5 Hyperlipidemia, unspecified; I25.10 Atherosclerotic heart disease of native coronary artery without angina pectoris; E11.65 Type 2 diabetes mellitus with hyperglycemia; G43.909 Migraine, unspecified, not intractable, without status migrainosus; Z88.3 Allergy status to other anti-infective agents; Z68.36 Body mass index [BMI] 36.0-36.9, adult; Z95.5 Presence of coronary angioplasty implant and graft; Z79.84 Long term (current) use of oral hypoglycemic drugs; I25.2 Old myocardial infarction; Y92.89 Other specified places as the place of occurrence of the external cause
CPT/HCPCS: 36415; 71045; 74176; 76775; 78452; 80048; 80053; 80061; 80307; 81001; 82533; 82570; 82962; 83036; 83605; 83735; 83880; 84300; 84443; 84484; 85025; 86141; 93005; 93017; 93306; 96361; 96365; 99291; G0378; J1815; J1885; J2405; J2470